=== PATIENT | female | born 1940 | race Caucasian/White ===

== ENCOUNTER → 2017-12-08 | Day surgery (SDC) | payer MEDICARE | LOC: BICULT 11:00 | PROVIDERS: ATTEND Surgery | PROC: 0HBT3ZX Excision of Right Breast, Percutaneous Approach, Diagnostic (ICD-10-PCS; principal; 2017-12-08) | DX: D05.01 Lobular carcinoma in situ of right breast (principal); Z90.12 Acquired absence of left breast and nipple | CPT/HCPCS: 19100; 76942; 88305; 88341; 88342; 88360; 88361 ==

== ENCOUNTER 2018-01-27 10:11 | Outpatient (CLI) | payer MEDICARE ==
[2018-01-27 12:18] LABS: #Lymphocytes 0.8 thou/uL (1.20-3.40); #Monocytes 0.3 thou/uL (0.11-0.59); #Neutrophils 2.5 thou/uL (1.40-6.50); %Basophils 0.4 % (0.0-1.0); %Eosinophils 0.9 % (0.0-10.0); %Lymphocytes 23.1 % (21.0-51.0); %Monocytes 8.4 % (0.0-10.0); %Neutrophils 67.2 % (42.0-75.0); Hemoglobin 12.8 g/dL (12.0-16.0); Mean Corpuscular Hemoglobin 31.5 pg (27.0-31.0); Mean Corpuscular Volume 95.6 fl (81.0-99.0); Platelet Count 150 thou/uL (130-400); RBC Distribution Width 12.5 % (11.5-14.5); Red Blood Cell (RBC) Count 4.06 mill/uL (4.20-5.40); White Blood Cell (WBC) Count 3.7 thou/uL (4.8-10.8)
[2018-01-27 12:39] LABS: Anion Gap 10 mmol/L (10-20); BUN (Urea Nitrogen) 12 mg/dL (9.8-20.1); Calc. Creatinine Clearance 0 mL/min (70-130); Calcium 9.2 mg/dL (7.8-10.44); Carbon Dioxide 26 mmol/L (23-31); Chloride 108 mmol/L (98-107); Estimated GFR-MDRD 84; Glucose 93 mg/dL (83-110); Potassium 3.8 mmol/L (3.5-5.1); Sodium 140 mmol/L (136-145)
== END 2018-01-27 10:12 | disposition home or self-care (01) ==
LOC: LABBT 10:11
PROVIDERS: ATTEND Surgery
DX: Z01.812 Encounter for preprocedural laboratory examination (principal); C50.911 Malignant neoplasm of unspecified site of right female breast
CPT/HCPCS: 80048; 85025

== ENCOUNTER 2018-01-28 07:24 | Observation (INO) | payer MEDICARE ==
[2018-01-27 10:46] VITALS: BMI 27.4
[2018-01-28] MEDS ORDERED: Succinylcholine Chloride 20 MG/ML 10 ml SYRINGE FS ONE (08:44)
[2018-01-28] MEDS ORDERED: Lidocaine 1% PF 5 ML VIAL ONE (08:44)
[2018-01-28] MEDS ORDERED: Ketorolac Tromethamine 30 MG/ML VIAL ONE (08:44)
[2018-01-28] MEDS ORDERED: PROPOFOL 200 MG/20 ML VIAL ONE (08:44)
[2018-01-28] MEDS ORDERED: Ondansetron HCl/PF 4 MG/2 ML Vial ONE (08:44)
[2018-01-28] MEDS ORDERED: Bupivacaine/Epinephrine 0.25% 30 ML VIAL ONE (11:56)
[2018-01-28] MEDS ORDERED: Lidocaine 2% 10 ML INJ ONE (11:57)
[2018-01-28] MEDS ORDERED: Fentanyl 100 MCG/2 ML VIAL ONE ×3 (11:59→15:18)
[2018-01-28] MEDS ORDERED: Midazolam HCl 2 mg/2 ml Vial ONE (11:59)
[2018-01-28] MEDS ORDERED: HYDROmorphone 0.5 MG/0.5 ML SYRINGE ONE (12:59)
[2018-01-28] MEDS ORDERED: CEFAZOLIN/Water 2 GM/20 ML SYRINGE ONE (13:08)
--- NOTE | 2018-01-28 13:53 | NM ---
NUCLEAR MEDICINE LYMPHOSCINTIGRAPHY: HISTORY: Right breast invasive cancer. COMPARISON: None. TECHNIQUE: The patient was administered 500 mCi of filtered technetium 99m sulfur colloid. The radiotracer was administered in the subcutaneous region at the 12:00, 3:00, 6:00, and 9:00 positions. FINDINGS: Static images were performed immediately, 1 hour, 2 hours, and 3 hours. There is no evidence of a se ntinel lymph node. Radiotracer is noted in the periareolar region. IMPRESSION: No sonographic evidence of a sentinel lymph node. After 3 hours, the examination was terminated and the patient was sent to the OR for surgery. POS: MESERET
[2018-01-28] MEDS ORDERED: Ondansetron HCl/PF 4 MG/2 ML Vial IVP PRN ×2 (14:56→14:58)
[2018-01-28] MEDS ORDERED: Promethazine HCl 25 MG/ML VIAL IM PRN ×2 (14:56→14:58)
[2018-01-28] MEDS ORDERED: Promethazine HCl 25 MG/ML VIAL SLOW IVP PRN (14:56)
[2018-01-28] MEDS ORDERED: Dextrose 5% in Water 1,000 ML IV PRN (14:58)
[2018-01-28] MEDS ORDERED: Sodium Chloride 0.9% 1,000 ML IV SCH (14:58)
[2018-01-28] MEDS ORDERED: hydrALAZINE 20 MG/ML VIAL SLOW IVP PRN (14:58)
[2018-01-28] MEDS ORDERED: Morphine 4 MG/ML VIAL SLOW IVP PRN ×2 (14:58)
[2018-01-28] MEDS ORDERED: HYDROcodone/Acetaminophen 7.5/325 mg Tablet PO PRN ×2 (14:58)
[2018-01-28] MEDS ORDERED: Dextrose 50% Abboject 50 ML SYRINGE SLOW IVP PRN (14:58)
[2018-01-28] MEDS ORDERED: hydrALAZINE 20 MG/ML VIAL ONE (15:44)
[2018-01-28] MEDS: Docusate 100 MG CAP PO SCH (20:46)
[2018-01-28] MEDS: Prazosin HCl 1 MG CAP PO SCH (20:54)
[2018-01-28] MEDS ORDERED: Loratadine 10 MG TAB PO SCH (21:00)
[2018-01-28] MEDS ORDERED: Oxybutynin 5 MG TAB PO SCH (21:00)
[2018-01-28] MEDS ORDERED: Atorvastatin Calcium 10 MG TAB PO SCH (21:00)
--- NOTE | 2018-01-29 01:54 | OP ---
DATE OF PROCEDURE: 01/28/2018 PREOPERATIVE DIAGNOSIS: Right breast cancer. POSTOPERATIVE DIAGNOSIS: Right breast cancer. PROCEDURE: Right modified radical mastectomy. SURGEON: Chema Archuleta M.D. ANESTHESIA: General. ESTIMATED BLOOD LOSS: Minimal. COMPLICATIONS: None. SPECIMEN: Right breast and axillary contents; breast marked with two short superior and one long lat eral. INDICATION: The patient is a 77-year-old female with a history of left mastectomy and axillary disse ction 20 years ago for hormone positive breast cancer, now presents with a second malignancy (testing was negative). She is not a candidate for radiation given her history of scleroderma. Risks, benef its, alternatives of mastectomy, sentinel node biopsy were discussed. She gave consent. Her lymphos cintigraphy failed to show uptake in the right axilla. Decision was made for axillary dissection at the time of mastectomy. TECHNIQUE: The patient was taken to the operating room and placed supine on the table. After genera l anesthetic was obtained, her arms were out on arm boards. Her bilateral chest, neck, and flanks an d proximal arms were all prepped and draped in a sterile fashion. Oblique incision is made to includ e the nipple areolar complex. Flaps are raised superior to the clavicle, medially to the sternum, in ferior to inframammary fold, laterally to latissimus dorsi muscle. The breast is taken off of the ch est wall including the pectoralis major fascia. It is peeled off of the right chest wall and breast tissue pec minor is removed as well. Clavipectoral fascia was entered. The axillary vein is f ound superiorly. The long thoracic nerve is found immediately, thoracodorsal nerve was found posteri camilo. The level 1 and 2 lymph nodes are taken. vein is taken using the LigaSure. LigaSure is used to take all lymphatics. Specimen was marked and sent to path for final diagnosis. Meticulous hemostasis is obtained in the wound. The wound is irrigated using sterile water. A 19 round drain b rought out through a stab incision, sewn in place using silk. The wound was closed in multiple layer s using 3-0 Vicryl, 4-0 Monocryl, Dermabond. Drain dressings were placed. The patient was en route to recovery in stable condition. All instrument counts, needle counts, lap counts were correct.
[2018-01-29] MEDS: Docusate 100 MG CAP PO SCH (07:53)
[2018-01-29] MEDS ORDERED: Losartan 25 MG TAB PO SCH (09:00)
[2018-01-29] MEDS: Prazosin HCl 1 MG CAP PO SCH (10:26)
[2018-01-29 12:00] VITALS: BP 107/63; TEMP 97.6
--- NOTE | 2018-01-29 17:15 | DIS ---
DATE OF ADMISSION: 01/28/2018 DATE OF DISCHARGE: 01/29/2018 ADMIT DIAGNOSIS: Invasive breast cancer, right breast. DISCHARGE DIAGNOSIS: Invasive breast cancer, right breast. PROCEDURES: Right modified radical mastectomy by Dr. Archuleta without complication. CONDITION AT DISCHARGE: Improved. STAFF: Dr. Chema Archuleta The patient was admitted to hospital for postop. Never needed any pain medicine. She did develop ur inary retention, had had a catheter placed overnight. She was able to void before discharge. She wi ll resume her anticoagulation tomorrow.
== END 2018-01-29 14:02 | disposition home or self-care (01) ==
LOC: SDC 07:24 → SURG A 16:10
PROVIDERS: ADMIT Surgery; ATTEND Surgery
PROC: 0HBT0ZZ Excision of Right Breast, Open Approach (ICD-10-PCS; principal; 2018-01-28)
DX: C50.811 Malignant neoplasm of overlapping sites of right female breast (principal); M34.9 Systemic sclerosis, unspecified; M19.90 Unspecified osteoarthritis, unspecified site; Z79.01 Long term (current) use of anticoagulants; Z79.899 Other long term (current) drug therapy; Z90.12 Acquired absence of left breast and nipple; Z88.2 Allergy status to sulfonamides; Z91.040 Latex allergy status; Z17.0 Estrogen receptor positive status [ER+]
CPT/HCPCS: 19307; 51702; 78195; 80048; 85025; 88309; 96374 ×2; A9541; G0378; J0360; J1170; J1885; J2001; J2250; J2405; J2704; J3010; Q9968

== ENCOUNTER 2018-03-30 14:20 | Outpatient (CLI) | payer MEDICARE | END 2018-03-30 14:21 | disposition home or self-care (01) | LOC: BICMAMMO 14:20 | PROVIDERS: ATTEND Internal Medicine Rheumatology | DX: Z13.820 Encounter for screening for osteoporosis (principal); Z51.81 Encounter for therapeutic drug level monitoring; M81.0 Age-related osteoporosis without current pathological fracture; M85.88 Other specified disorders of bone density and structure, other site | CPT/HCPCS: 77080 ==

== ENCOUNTER 2019-03-02 10:25 | Outpatient (CLI) | payer MEDICARE ==
--- NOTE | 2019-03-02 11:07 | RAD ---
RADIOGRAPH CHEST 2 VIEWS: 03/02/2019 HISTORY: A 78-year-old female with systemic sclerosis. COMPARISON: None available. FINDINGS: Cardiac size is at the upper limits of normal. Minimal pulmonary venous prominence. No pulmonary ed garrison or air space density. No pleural effusion or pneumothorax. Mild tortuosity of the thoracic aort a but no other mediastinal widening. No pneumothorax. Absent left breast shadow. Left axillary kalie gical clips. IMPRESSION: 1. Status post left mastectomy and left axillary lymph node dissection. 2. No convincing evidence of acute disease. JN [] POS: TPC
== END 2019-03-02 10:26 | disposition home or self-care (01) ==
LOC: BICRAD 10:25
PROVIDERS: ATTEND Internal Medicine Rheumatology
DX: M34.9 Systemic sclerosis, unspecified (principal); Z90.12 Acquired absence of left breast and nipple
CPT/HCPCS: 71046

== ENCOUNTER 2019-06-23 14:50 | Outpatient (CLI) | payer MEDICARE ==
--- NOTE | 2019-06-23 17:08 | BD ---
BONE DENSITOMETRY USING DEXA: Date: 06/23/19 HISTORY: Postmenopausal screening for osteoporosis. FINDINGS: Lumbar Spine: BMD (g/cm2) L1 1.052 T-Score: 0.6 Z-Score: 2.8 L2 1.069 T-Score: 0.4 Z-Score: 2.9 L3 1.123 T-Score: 0.4 Z-Score: 3.0 L4 1.087 T-Score: 0.2 Z-Score: 2.9 L1-L4 1.084 T-Score: 0.3 Z-Score: 2.9 Femoral Neck: 0.616 T-Score: -2.1 Z-Score: 0.1 Total Femur: 0.807 T-Score: -1.1 Z-Score: 0.8 The 10 year fracture risk for a major osteoporotic fracture is 14% and for a hip fracture is 4%. IMPRESSION: Osteopenia. POS: OFF
== END 2019-06-23 14:51 | disposition home or self-care (01) ==
LOC: BICMAMMO 14:50
PROVIDERS: ATTEND Internal Medicine Rheumatology
DX: M81.0 Age-related osteoporosis without current pathological fracture (principal); M85.859 Other specified disorders of bone density and structure, unspecified thigh
CPT/HCPCS: 77080

== ENCOUNTER 2019-11-09 12:48 | Outpatient (CLI) | payer MEDICARE ==
--- NOTE | 2019-11-09 13:32 | RAD ---
2 VIEWS CHEST: Date: 11/09/2019 COMPARISON: None. HISTORY: Dyspnea. FINDINGS: 2 views of the chest show an enlarged cardiomediastinal silhouette. There is no evidence of consolida tion, mass, or pleural effusion. Surgical clips are seen in the left axilla. IMPRESSION: No evidence of acute cardiopulmonary disease. POS: TPC
== END 2019-11-09 12:49 | disposition home or self-care (01) ==
LOC: RAD 12:48
PROVIDERS: ATTEND Internal Medicine
DX: R06.00 Dyspnea, unspecified (principal)
CPT/HCPCS: 71046

== ENCOUNTER 2020-05-15 14:51 | Inpatient (IN) | payer MEDICARE, OTHER ==
[2020-05-15 15:27] LABS: #Lymphocytes 0.6 thou/uL (1.20-3.40); #Monocytes 0.3 thou/uL (0.11-0.59); #Neutrophils 6.2 thou/uL (1.40-6.50); %Basophils 0.1 % (0.0-1.0); %Eosinophils 0.1 % (0.0-10.0); %Monocytes 4.8 % (0.0-10.0); %Neutrophils 86.9 % (42.0-75.0); Hemoglobin 11.8 g/dL (12.0-16.0); Mean Corpuscular HGB CONC 33.3 g/dL (32.0-36.0); Mean Corpuscular Hemoglobin 31.4 pg (27.0-31.0); Mean Corpuscular Volume 94.5 fL (78.0-98.0); Mean Platelet Volume 7.1 fL (7.4-10.4); Platelet Count 145 thou/uL (130-400); RBC Distribution Width 12.3 % (11.5-14.5); Red Blood Cell (RBC) Count 3.76 mill/uL (4.20-5.40); White Blood Cell (WBC) Count 7.2 thou/uL (4.8-10.8)
[2020-05-15] MEDS ORDERED: Fentanyl 100 MCG/2 ML VIAL ONE (15:46)
--- NOTE | 2020-05-15 15:46 | RAD ---
LEFT KNEE 4 VIEWS: HISTORY: Knee pain. FINDINGS: Mild loss of medial joint. Prominent spurring from the condyles. There is spurring from the tibial spines and there is chondrocalcinosis seen in both medial and lateral joint spaces. There is spurrin g from the posterior patella. There is a moderate-sized joint effusion in the suprapatellar region. No fracture or acute lesion. IMPRESSION: Moderate degenerative change and moderate-sized joint effusion. POS: AGW
[2020-05-15 15:50] LABS: ALT (SGPT) 8 U/L (8-55); AST (SGOT) 11 U/L (5-34); Alkaline Phosphatase 77 U/L (40-110); Anion Gap 14 mmol/L (10-20); BUN (Urea Nitrogen) 16 mg/dL (9.8-20.1); Bilirubin, Total 0.5 mg/dL (0.2-1.2); Calc. Creatinine Clearance 0 mL/min (70-130); Calcium 8.6 mg/dL (7.8-10.44); Carbon Dioxide 24 mmol/L (23-31); Chloride 106 mmol/L (98-107); Estimated GFR-MDRD 76; Globulin 2.7 g/dL (2.4-3.5); Glucose 121 mg/dL (83-110); Potassium 3.8 mmol/L (3.5-5.1); Protein, Total 6.7 g/dL (6.0-8.3); Sodium 140 mmol/L (136-145)
[2020-05-15] MEDS ORDERED: Dexamethasone 10 MG/ML VIAL ONE (16:17)
--- NOTE | 2020-05-15 20:00 | PDOC.HHP ---
Hospitalist HPI - History of Present Illness Left knee pain History of Present Illness: PCP: Out of town ([facility]) The patient is a 72-year-old female with a past medical history significant for osteoarthritis, raynauds/scleroderma that presents to the ER via EMS for the above complaint. The patient was in her usual health this morning when she went shopping to multiple stores. She reports after several hours of shopping that she developed left knee pain, gradually worsening throughout the morning, described as "a hard ache", constant, exacerbated with weightbearing activities , relieved by rest and elevation of the affected extremity. She reports associated swelling to the left knee, so much so that she could not bend her knee and had difficulty getting into her automobile. She denies any recent fall or blunt force trauma. She denies any fever or chills. She has no other complaints at this time. She called EMS and was taken to the ER. Upon arrival , EMS found her to be afebrile with a stable blood pressure, stable pulse, stable O2 saturation. She was given 100 mcgs of fentanyl by EMS. ED Course: VITAL SIGNS ThuMay 15, 2020 14:57 ERICA Camargo Jennifer BP: 160/62, Pulse: 63, Resp: 16, Temp: 98.2 (Oral), Pain: 8, O2 sat: 100 on ( Room Air), Time: 05/15/2020 14:57. VITAL SIGNS ThuMay 15, 2020 15:54 ERICA Camargo Jennifer BP: 162/62, Pulse: 62, Resp: 18, Pain: 3, O2 sat: 100 on (Room Air), Time: 2019 15:54. VITAL SIGNS ThuMay 15, 2020 16:19 ERICA Camargo Jennifer BP: 153/60, Pulse: 62, Resp: 20, Temp: 98.5 (Oral), Pain: 2, O2 sat: 98 on ( Room Air), Time: 05/15/2020 16:19. VITAL SIGNS ThuMay 15, 2020 17:00 Hoang RN, Daniel BP: 150/59, Pulse: 61, Resp: 21, O2 sat: 98 on (Room Air), Time: 05/15/2020 17: 00. VITAL SIGNS ThuMay 15, 2020 18:33 Hoang RN, Daniel BP: 162/69, Pulse: 65, Resp: 21, Pain: 0, O2 sat: 100 on (Room Air), Time: 2019 18:33. VITAL SIGNS ThuMay 15, 2020 19:29 Hoang RN, Daniel BP: 161/71, Pulse: 70, Resp: 22, Temp: 98.7 (Oral), Pain: 0, O2 sat: 99 on ( Room Air), Time: 05/15/2020 19:29. X-ray of the left knee showed moderate joint effusion with moderate degenerative changes. CRP less than 0.50 and ESR 17. WBC is unremarkable. Medication administration: Decadron Phosphate injection 10 mg IV Push Given 16:22 05/15/2020 fentaNYL (PF) injection 100 mcg IV Push Given 15:52 05/15/2020 Hospitalist ROS - Review of Systems Constitutional: denies: fever, chills Respiratory: denies: cough, shortness of breath, SOB with excertion Cardiovascular: denies: chest pain, palpitations, edema Gastrointestinal: denies: nausea, vomiting, abdominal pain, diarrhea Musculoskeletal: reports: leg pain (Left knee pain) Skin: denies: rash, bruising Neurological: denies: weakness, numbness All other systems reviewed; all pertinent +/- noted in HPI/Subj - Medication Medications: dilTIAZem oral CAPSULE, EXT RELEASE 24 HR : Strength - 240 mg : ORAL Patient Dose: 0.5 tab(s) Oral once a day. Allergies: Latex, Natural Rubber, Sulfa (Sulfonamide Antibiotics) (Unconfirmed) Hospitalist History - Past Medical History Source: patient, RN notes reviewed Other Medical History: MEDICAL HISTORY ThuMay 15, 2020 15:03 ERICA Camargo Jennifer Notes: HTN, AFIB (on Xarelto), BREAST CANCER, Past medical history includes history of hyperlipidemia, Raynauds/Scleroderma, FEMALE SURGICAL HISTORY ThuMay 15, 2020 15:03 ERICA Camargo Jennifer CHOLEY,, Surgical history of mastectomy. PSYCHIATRIC HISTORY: None SOCIAL HISTORY ThuMay 15, 2020 15:03 ERICA Camargo Jennifer Patient drinks every day, less than 5 drinks per day, Patient denies drug use, Patient has no smoking history. FAMILY HISTORY: Non contributory to this case - Exam General Appearance: NAD, awake alert Eye: anicteric sclera ENT: normocephalic atraumatic Neck: supple, symmetric Heart: RRR, no murmur, no gallops, no rubs, normal peripheral pulses Respiratory: CTAB, no wheezes, no rales, no ronchi, normal chest expansion Gastrointestinal: soft, non-tender, non-distended, no bruit, no guarding, no rigidity Extremities - other findings: swelling to left knee, no open lesions, no bruising,decreased ROM Neurological: normal sensation to touch, no weakness, no focal deficits Musculoskeletal: normal tone, normal strength Psychiatric: normal affect, A&O x 3 Hospitalist Results - Labs Result Diagrams: 05/15/20 15:18 05/15/20 15:18 Lab results: WBC 7.2 thou/uL (4.8-10.8) 05/15/20 15:18 Hgb 11.8 g/dL (12.0-16.0) L 05/15/20 15:18 Hct 35.5 % (36.0-47.0) L 05/15/20 15:18 MCV 94.5 fL (78.0-98.0) 05/15/20 15:18 Plt Count 145 thou/uL (130-400) 05/15/20 15:18 Neutrophils % 86.9 % (42.0-75.0) H 05/15/20 15:18 ESR Westergren 17 mm/hr (Less than 30) 05/15/20 15:18 Sodium 140 mmol/L (136-145) 05/15/20 15:18 Potassium 3.8 mmol/L (3.5-5.1) 05/15/20 15:18 Chloride 106 mmol/L (98-107) 05/15/20 15:18 Carbon Dioxide 24 mmol/L (23-31) 05/15/20 15:18 BUN 16 mg/dL (9.8-20.1) 05/15/20 15:18 Creatinine 0.74 mg/dL (0.6-1.1) 05/15/20 15:18 Glucose 121 mg/dL (83-110) H 05/15/20 15:18 Calcium 8.6 mg/dL (7.8-10.44) 05/15/20 15:18 Total Bilirubin 0.5 mg/dL (0.2-1.2) 05/15/20 15:18 AST 11 U/L (5-34) 05/15/20 15:18 ALT 8 U/L (8-55) 05/15/20 15:18 Alkaline Phosphatase 77 U/L (40-110) 05/15/20 15:18 C-Reactive Protein Less than 0.50 mg/dL (= or < 0.5) 05/15/20 15:18 Serum Total Protein 6.7 g/dL (6.0-8.3) 05/15/20 15:18 Albumin 4.0 g/dL (3.4-4.8) 05/15/20 15:18 - Radiology Interpretation Other Status: report reviewed by me Additional Comment: Left Knee Xray IMPRESSION: Moderate degenerative change and moderate-sized joint effusion. Hospitalist H&P A/P - Problem (1) Effusion, left knee Code(s): M25.462 - EFFUSION, LEFT KNEE Status: Acute Assessment and Plan: Admit to medical floor, and inpatient status. Expected length of stay greater than 2 midnights. Patient presents with stable vital signs. X-ray of left knee shows moderate joint effusion and moderate degenerative changes. ESR 17, CRP less than 0.50, WBC is unremarkable. Patient symptoms improved with opioids and steroids. We will continue as needed opioids for pain. Order ice packs and elevation of affected limb. Consult PT eval. Consult case management. [facility] saw patient in the ER and is in the process of getting approval for possible therapy. (2) Impaired mobility and ADLs Code(s): Z74.09 - OTHER REDUCED MOBILITY; Z78.9 - OTHER SPECIFIED HEALTH STATUS Status: Acute Assessment and Plan: Patient reports concern about her activities of daily living. Feels unsafe to go home. Will consult physical therapy and case management to see if patient meets rehab criteria. (3) Atrial fibrillation Code(s): I48.91 - UNSPECIFIED ATRIAL FIBRILLATION Status: Chronic Assessment and Plan: History of A. fib on Xarelto. Will restart patient Xarelto. - Plan Plan: Consult physical therapy. Lovenox for DVT prophylaxis. Full code. Contact is ARIADNA BUSTOS, Relationship to patient DAUGHTER, Phone number: [phone]. Discussed case with Dr. Sanjuana Mi.
[2020-05-15] MEDS ORDERED: Acetaminophen 325 MG TAB PO PRN (21:50)
[2020-05-15] MEDS ORDERED: Calcium Carbonate 500 MG ChewTAB PO PRN (21:50)
[2020-05-15] MEDS ORDERED: HYDROcodone/Acetaminophen 5/325 mg Tablet PO PRN (21:50)
[2020-05-15 23:23] VITALS: BMI 26.0
[2020-05-16 06:21] LABS: #Lymphocytes 0.5 thou/uL (1.20-3.40); #Monocytes 0.1 thou/uL (0.11-0.59); #Neutrophils 3.4 thou/uL (1.40-6.50); %Eosinophils 0.1 % (0.0-10.0); %Lymphocytes 11.7 % (21.0-51.0); %Monocytes 2.6 % (0.0-10.0); %Neutrophils 85.5 % (42.0-75.0); Hemoglobin 12.1 g/dL (12.0-16.0); Mean Corpuscular HGB CONC 32.4 g/dL (32.0-36.0); Mean Corpuscular Hemoglobin 30.6 pg (27.0-31.0); Mean Corpuscular Volume 94.4 fL (78.0-98.0); Mean Platelet Volume 7.8 fL (7.4-10.4); Platelet Count 163 thou/uL (130-400); RBC Distribution Width 12.4 % (11.5-14.5); Red Blood Cell (RBC) Count 3.95 mill/uL (4.20-5.40)
[2020-05-16 06:36] LABS: Anion Gap 13 mmol/L (10-20); BUN (Urea Nitrogen) 15 mg/dL (9.8-20.1); Calc. Creatinine Clearance 76 mL/min (70-130); Calcium 8.5 mg/dL (7.8-10.44); Carbon Dioxide 24 mmol/L (23-31); Chloride 106 mmol/L (98-107); Estimated GFR-MDRD 84; Glucose 130 mg/dL (83-110); Potassium 3.9 mmol/L (3.5-5.1); Sodium 139 mmol/L (136-145)
[2020-05-16] MEDS ORDERED: Vitamin E 400 UNITS CAP PO SCH (09:00)
[2020-05-16] MEDS: Lactinex Tablet PO SCH (09:39)
[2020-05-16] MEDS: Loratadine 10 MG TAB PO SCH (09:40)
[2020-05-16] MEDS: Prazosin HCl 1 MG CAP PO SCH ×2 (09:43→20:09)
[2020-05-16] MEDS: HYDROcodone/Acetaminophen 5/325 mg Tablet PO PRN (11:18)
--- NOTE | 2020-05-16 12:08 | PDOC.HOSPP ---
- Subjective Encounter Date: 05/16/20 Encounter Time: 12:05 Subjective: No overnight events. Pt reports her knee pain is the same as yesterday. Unable to bear weight on her left leg. Denies numbness, tingling. Denies back pain. denies any trauma to her knee. No history of knee problems. Pt seen and examined at bedside. Chart and medications reviewed. - Objective Vital Signs & Weight: Vital Signs (12 hours) Temp Pulse Resp BP BP Pulse Ox 05/16/20 09:39 66 160/71 H 94 L 05/16/20 07:22 97.5 F L 66 18 160/71 H 94 L 05/16/20 06:47 97.4 F L 78 18 139/52 L 92 L Weight Weight 156 lb 9.6 oz Result Diagrams: 05/17/20 05:27 05/16/20 05:40 Radiology Reviewed by me: Yes (Knee x-raysignificant joint effusion) Hospitalist ROS - Review of Systems Constitutional: denies: fever, chills, sweats, weakness, malaise, other Eyes: denies: vision change ENT: denies: ear pain, ear discharge, nose pain, nose discharge, nose congestion , mouth pain, mouth swelling, throat pain, throat swelling, other Respiratory: denies: cough, dry, shortness of breath, hemoptysis, SOB with excertion, pleuritic pain, sputum, wheezing, other Cardiovascular: denies: chest pain, palpitations, orthopnea, paroxysmal noc. dyspnea, edema, light headedness, other Gastrointestinal: denies: nausea, vomiting, abdominal pain, diarrhea, constipation, melena, hematochezia, other Genitourinary: denies: dysuria, frequency, incontinence, hematuria, retention, other Musculoskeletal: reports: leg pain Skin: denies: rash, lesions Neurological: denies: weakness, numbness, incoordination, change in speech, confusion, seizures, other - Medication Medications: Active Medications Generic Name Dose Route Start Last Admin Trade Name Freq PRN Reason Stop Dose Admin Hydrocodone Bitart/Acetaminophen 1 tab 05/15/20 21:50 05/16/20 11:18 Powers 5/325 PO 1 tab Q4H PRN Administration Moderate Pain (4-6) Acidophilus 1 tab 05/16/20 09:00 05/16/20 09:39 Floranex PO 1 tab DAILY MALGORZATA Administration Diltiazem HCl 120 mg 05/16/20 09:00 05/16/20 09:39 Cardizem Cd PO 120 mg DAILY MALGORZATA Administration Loratadine 10 mg 05/16/20 09:00 05/16/20 09:40 Claritin PO 10 mg DAILY MALGORZATA Administration Pantoprazole Sodium 40 mg 05/16/20 09:00 05/16/20 09:40 Protonix PO 40 mg DAILY MALGORZATA Administration Pentoxifylline 400 mg 05/16/20 09:00 05/16/20 09:40 Trental PO 400 mg TID MALGORZATA Administration Prazosin HCl 1 mg 05/16/20 09:00 05/16/20 09:43 Minipress PO 1 mg BID MALGORZATA Administration Sodium Chloride 10 ml 05/15/20 21:50 05/16/20 09:46 Flush - Normal Saline IVF 10 ml PRN PRN Administration Saline Flush Vitamin E 400 units 05/16/20 09:00 05/16/20 09:40 Vitamin E PO 400 units DAILY MALGORZATA Administration - Exam General Appearance: NAD, awake alert Eye: anicteric sclera ENT: normocephalic atraumatic, moist mucosa Neck: supple, symmetric, no JVD, no thyromegaly, no lymphadenopathy, no carotid bruit Heart: RRR, no murmur, no gallops, no rubs, normal peripheral pulses Respiratory: CTAB, no wheezes, no rales, no ronchi, normal chest expansion, no tachypnea, normal percussion Gastrointestinal: soft, non-tender, non-distended, normal bowel sounds, no palpable masses, no hepatomegaly, no splenomegaly, no bruit Extremities - other findings: Edema to L knee Skin: normal turgor, no lesions, no rashes Neurological: normal sensation to touch, no weakness, no focal deficits Musculoskeletal - other findings: L knee ROM limited by pain. No pain with micromotion. Ballotable effusion. Hosp A/P (1) Scleroderma Code(s): M34.9 - SYSTEMIC SCLEROSIS, UNSPECIFIED Status: Acute (2) Effusion, left knee Code(s): M25.462 - EFFUSION, LEFT KNEE Status: Acute (3) Impaired mobility and ADLs Code(s): Z74.09 - OTHER REDUCED MOBILITY; Z78.9 - OTHER SPECIFIED HEALTH STATUS Status: Acute (4) Atrial fibrillation Code(s): I48.91 - UNSPECIFIED ATRIAL FIBRILLATION Status: Chronic - Plan Left Knee Effusion: P/w pain, swelling, stiffness, and inability to bear weight to L knee that occurred while she was walking around a shopping store. Denies trauma to the area. XR showed moderate effusion, but no evidence of fx. No pain with micro- motion on exam. Low suspicion for septic arthritis. Afebrile, no leukocytosis. Pt does have hx of scleroderma and follow with rheum, however CRP and ESR not elevated. Pt is on xarelto so will consult orthopedics for ? hemarthrosis. PLAN: -orthopedics consulted, reccs appreciated -PT/OT Atrial fibrillation: Hx of a-fib on Xarelto, diltiazem. NSR. PLAN: -Hold home Xarelto dt concern for hemarthrosis -Continue home diltiazem 120 mg daily Scleroderma: Hx of scleroderma and raynauds. CRP and ESR wnl. Follows with rheumatology. On home pentoxifylline. PLAN -Continue home pentoxifylline 400 mg TID Hypertension: Continue home losartan 25 mg, diltiazem 120 mg daily DVT prophylaxis: holding home xarelto FULL CODE Case discussed with attending physician, Dr. Mccormick. Addendum - Physician - Physician Attestation Date/Time: 05/16/201913 I personally performed or re-performed the physical examination and medical decision making. I have verified all PA documentation or findings, including history, physical exam and/or medical decision making. Impression: Acute left knee pain secondary to left knee hemarthrosis - Septic arthritis less likely. Inability to ambulate due to above Paroxysmal atrial fibrillation on anticoagulation Chronic anemia suspected due to nutritional deficiency Hypertension Hyperlipidemia Scleroderma Varicose veins CKD stage II Plan: Patient had 3 attempts for arthrocentesis without successPatient probably has formed hematoma per Ortho. It is reasonable to hold anticoagulation for now due to significant joint swelling. Patient understands the risk associated with holding anticoagulation. Will continue Cardizem for rate control. Recheck labs in a.m. Hemoglobin is stable at this time. Will add IV morphine PRN due to significant pain. Continue Powers PRN. Add scheduled Tylenol/tramadol due to intractable pain. Inpatient rehab evaluation if patient not safe to be discharged home. Continue physical therapy evaluation patient not stable for discharge. Case discussed with orthopedic team.
[2020-05-16 12:56] LABS: SARS-CoV-2 MS2 Positive; SARS-CoV-2 N Gene Negative; SARS-CoV-2 S Gene Negative; SARS-CoV-2 by NAA Not Detected (NotDetected); SARS-CoV-2 orf1ab Negative
[2020-05-16] MEDS ORDERED: Morphine 2 MG/ML VIAL SLOW IVP PRN (19:12)
[2020-05-16] MEDS ORDERED: traMADol HCl 50 MG TAB PO PRN (19:17)
[2020-05-16] MEDS: Oxybutynin 5 MG TAB PO SCH (20:08)
[2020-05-16] MEDS: Losartan 25 MG TAB PO SCH (20:08)
[2020-05-16] MEDS: Acetaminophen 325 MG TAB PO SCH (20:08)
[2020-05-16] MEDS: Atorvastatin Calcium 10 MG TAB PO SCH (20:08)
[2020-05-16] MEDS: traMADol HCl 50 MG TAB PO SCH (20:09)
[2020-05-16] MEDS ORDERED: Rivaroxaban 10 MG TAB PO SCH (21:00)
[2020-05-17] MEDS: HYDROcodone/Acetaminophen 5/325 mg Tablet PO PRN ×2 (02:38→23:09)
[2020-05-17 06:06] LABS: #Lymphocytes 1.1 thou/uL (1.20-3.40); #Monocytes 0.7 thou/uL (0.11-0.59); #Neutrophils 4.7 thou/uL (1.40-6.50); %Basophils 0.2 % (0.0-1.0); %Eosinophils 0.3 % (0.0-10.0); %Lymphocytes 17.1 % (21.0-51.0); %Neutrophils 72.3 % (42.0-75.0); Hemoglobin 12.1 g/dL (12.0-16.0); Mean Corpuscular HGB CONC 31.9 g/dL (32.0-36.0); Mean Corpuscular Hemoglobin 30.8 pg (27.0-31.0); Mean Corpuscular Volume 96.3 fL (78.0-98.0); Mean Platelet Volume 7.9 fL (7.4-10.4); Platelet Count 142 thou/uL (130-400); RBC Distribution Width 12.6 % (11.5-14.5); Red Blood Cell (RBC) Count 3.92 mill/uL (4.20-5.40); White Blood Cell (WBC) Count 6.6 thou/uL (4.8-10.8)
[2020-05-17 06:28] LABS: Anion Gap 12 mmol/L (10-20); BUN (Urea Nitrogen) 16 mg/dL (9.8-20.1); Calc. Creatinine Clearance 72 mL/min (70-130); Calcium 8.3 mg/dL (7.8-10.44); Carbon Dioxide 25 mmol/L (23-31); Chloride 107 mmol/L (98-107); Estimated GFR-MDRD 78; Glucose 99 mg/dL (83-110); Magnesium 1.9 mg/dL (1.6-2.6); Potassium 4.2 mmol/L (3.5-5.1); Sodium 140 mmol/L (136-145)
[2020-05-17] MEDS ORDERED: Calcium Carbonate 500 MG ChewTAB PO PRN ×2 (08:01→15:21)
[2020-05-17] MEDS: Lactinex Tablet PO SCH (08:24)
[2020-05-17] MEDS: Acetaminophen 325 MG TAB PO SCH ×3 (08:24→20:07)
[2020-05-17] MEDS: Prazosin HCl 1 MG CAP PO SCH ×2 (08:24→20:07)
[2020-05-17] MEDS: traMADol HCl 50 MG TAB PO SCH ×3 (08:24→20:07)
[2020-05-17] MEDS: Loratadine 10 MG TAB PO SCH (08:28)
--- NOTE | 2020-05-17 14:06 | CON ---
DATE OF CONSULTATION: 05/16/2020 REQUESTING PHYSICIAN: Dr. Bin Barrientos. CONSULTING PHYSICIAN: Dr. Jose Barahona. REASON FOR CONSULTATION: Left knee hemarthrosis. BRIEF CLINICAL HISTORY: Angella is a 80-year-old female, who was admitted by the medicine team for acute onset of pain in the left knee 24 to 48 hours prior to admission. She does have a little arthritis in the knee as she notes by history, but she was doing a little extra activity, doing some walking 2 days prior to admission and she noticed she had acute swelling and discomfort in the left knee, which was similar to an onset of gout in the past. The patient does take Eliquis for atrial fibrillation. The emergency room physician saw the patient and attempted an arthrocentesis x2 both from medial and lateral suprapatellar approach. Plain radiographs were obtained, which demonstrated moderate to severe arthritis and also a large effusion in the suprapatellar pouch. There was no aspirate obtained and no specimen sent from the attempted arthrocentesis. Our service has been consulted for evaluation of the onset of pain and as to whether or not this is just simple organized hematoma from hemarthrosis versus septic arthritis. OBJECTIVE: VITAL SIGNS: Temperature 98, pulse 66, respiratory rate is 16 and nonlabored, O2 saturation 94% on room air, blood pressure is 130/66. GENERAL: She is alert and oriented to person, place, time, and situation, responsive and appropriate with examiner. She does not appear to be septic or grossly ill or toxic, and she is appropriate and polite and conversive with examiner. MUSCULOSKELETAL: Visual inspection of the left lower extremity demonstrates her to indeed have a +1 to 2 swelling, but the extracapsular tissues are soft and supple, suggesting an intracapsular process, but without significant fluctuance and ballottement is difficult to assess and ascertain due to fullness, but range of motion is difficult and stiff. The knee essentially does not look like an acute gouty or liquid effusion, but more of organized hematoma in terms of firmness and stiffness, but without subcutaneous swelling and/or thinning of the tissues, it does not chronicity to it either. She is neurovascularly intact in the left lower extremity. Range of motion is difficult to perform both active and/or passively and is uncomfortable. IMAGING STUDIES: Two-view left knee demonstrates intra-articular bony changes with suprapatellar effusion and grade 3 to 4 osteoarthritis is present. IMPRESSION: I suspect this is an organized hematoma, intracapsular in nature secondary to spontaneous hemarthrosis. This is also suggested by the overall appearance clinically radiographs and inability to obtain an aspirate with arthrocentesis. PLAN: 1. We will consult Physical therapy for mobilization, modalities as needed. 2. No surgical intervention is warranted at this point and would prefer not to repeat a failed arthrocentesis. No imaging is recommended at this point since we have a good firm clinical diagnosis. 3. For this particular patient, we will sign off for now. Re-consult as needed. Job ID: [id number]
[2020-05-17] MEDS ORDERED: Acetaminophen/Codeine 30-300mg Tablet PO PRN (15:13)
--- NOTE | 2020-05-17 15:15 | PDOC.HOSPP ---
- Subjective Encounter Date: 05/17/20 Encounter Time: 08:15 Subjective: Patient seen and examined for left knee hemarthrosis. No significant pain at rest. Pain gets worse with activity. - Objective Vital Signs & Weight: Vital Signs (12 hours) Temp Pulse Resp BP Pulse Ox 05/17/20 11:19 98 F 69 17 111/57 L 100 05/17/20 08:25 55 L 05/17/20 07:12 97.5 F L 55 L 16 126/67 98 05/17/20 05:00 97.6 F 67 16 129/71 94 L Weight Weight 156 lb 9.6 oz I&O: 05/16/20 05/17/20 05/18/20 06:59 06:59 06:59 Intake Total 1160 Output Total 1150 Balance 10 Result Diagrams: 05/17/20 05:27 05/17/20 05:27 Radiology Reviewed by me: Yes (Left knee x-rayeffusion) Hospitalist ROS - Review of Systems Respiratory: denies: cough, dry, shortness of breath, hemoptysis, SOB with excertion, pleuritic pain, sputum, wheezing, other Cardiovascular: denies: chest pain, palpitations, orthopnea, paroxysmal noc. dyspnea, edema, light headedness, other - Medication Medications: Active Medications Generic Name Dose Route Start Last Admin Trade Name Freq PRN Reason Stop Dose Admin Acetaminophen 650 mg 05/15/20 21:50 05/16/20 12:48 Tylenol PO 650 mg Q4H PRN Administration Headache/Fever/Mild Pain (1-3) Acetaminophen 650 mg 05/16/20 21:00 05/17/20 14:33 Tylenol PO 650 mg TID MALGORZATA Administration Hydrocodone Bitart/Acetaminophen 1 tab 05/15/20 21:50 05/17/20 02:38 [place] 5/325 PO 1 tab Q4H PRN Administration Moderate Pain (4-6) Acidophilus 1 tab 05/16/20 09:00 05/17/20 08:24 Floranex PO 1 tab DAILY MALGORZATA Administration Atorvastatin Calcium 10 mg 05/16/20 21:00 05/16/20 20:08 Lipitor PO 10 mg HS MALGORZATA Administration Calcium Carbonate 1,000 mg 05/17/20 08:01 05/17/20 14:32 Tums PO 1,000 mg Q4H PRN Administration Heartburn or Indigestion Diltiazem HCl 120 mg 05/16/20 09:00 05/17/20 08:25 Cardizem Cd PO Not Given DAILY MALGORZATA Loratadine 10 mg 05/16/20 09:00 05/17/20 08:28 Claritin PO 10 mg DAILY MALGORZATA Administration Losartan Potassium 25 mg 05/16/20 21:00 05/16/20 20:08 Cozaar PO 25 mg HS MALGORZATA Administration Oxybutynin Chloride 5 mg 05/16/20 21:00 05/16/20 20:08 Ditropan PO 5 mg HS MALGORZATA Administration Pentoxifylline 400 mg 05/16/20 09:00 05/17/20 08:24 Trental PO 400 mg TID MALGORZATA Administration Prazosin HCl 1 mg 05/16/20 09:00 05/17/20 08:24 Minipress PO 1 mg BID MALGORZATA Administration Sodium Chloride 10 ml 05/15/20 21:50 05/16/20 09:46 Flush - Normal Saline IVF 10 ml PRN PRN Administration Saline Flush Tramadol HCl 50 mg 05/16/20 21:00 05/17/20 14:33 Ultram PO 50 mg TID MALGORZATA Administration - Exam General Appearance: NAD Neck: supple, no JVD Heart: RRR, no gallops Respiratory: no wheezes, no ronchi Gastrointestinal: soft, non-tender, normal bowel sounds Extremities: no cyanosis Neurological: no new deficit Hosp A/P - Plan Acute left knee pain secondary to left knee hemarthrosis - Septic arthritis less likely. Inability to ambulate due to above Paroxysmal atrial fibrillation on anticoagulation Chronic anemia suspected due to nutritional deficiency Hypertension Hyperlipidemia Scleroderma Varicose veins CKD stage II GERD Plan: Continue Tylenol with tramadol scheduled for pain control. Continue [place] and morphine for acute pain. Await physical therapy evaluation today. I discussed with orthopedic who recommended conservative management. Will also add Teodoro wrap 's for left knee. Will arrange for home health care for long term and physical therapy. Restart Xarelto today. Discharge home when able to ambulate. Continue Cardizem and other medications as above.
[2020-05-17] MEDS ORDERED: Mag-Al 1200 mg/1200 mg/30 ML UDCUP PO PRN (15:21)
[2020-05-17] MEDS: Rivaroxaban 10 MG TAB PO SCH (17:21)
[2020-05-17] MEDS: Atorvastatin Calcium 10 MG TAB PO SCH (20:07)
[2020-05-17] MEDS: Oxybutynin 5 MG TAB PO SCH (20:07)
[2020-05-17] MEDS: Losartan 25 MG TAB PO SCH (20:07)
[2020-05-17] MEDS ORDERED: diphenhydrAMINE 50 MG/ML VIAL IVP SCH (20:45)
[2020-05-18] MEDS: Prazosin HCl 1 MG CAP PO SCH ×2 (08:56→21:06)
[2020-05-18] MEDS: Lactinex Tablet PO SCH (08:57)
[2020-05-18] MEDS: Acetaminophen 325 MG TAB PO SCH ×3 (08:57→21:06)
[2020-05-18] MEDS: Loratadine 10 MG TAB PO SCH (08:59)
[2020-05-18] MEDS: traMADol HCl 50 MG TAB PO SCH ×3 (08:59→21:06)
[2020-05-18] MEDS: Senokot S 8.6-50 MG TAB PO PRN (14:43)
[2020-05-18] MEDS: Rivaroxaban 10 MG TAB PO SCH (17:50)
--- NOTE | 2020-05-18 21:02 | PDOC.EVN ---
Event Note - Event Note Event Note: Received call from nursing that patient's heart rate was elevated. Stat EKG ordered showed A. fib with RVR. Patient asymptomatic other than can feel the palpitations. Patient to be transferred to telemetry to be monitored. Stat labs ordered. Cardizem bolus ordered once to the floor. Cardiology consult in a.m.
[2020-05-18] MEDS: Oxybutynin 5 MG TAB PO SCH (21:06)
[2020-05-18] MEDS: Atorvastatin Calcium 10 MG TAB PO SCH (21:06)
[2020-05-18] MEDS: Losartan 25 MG TAB PO SCH (21:06)
[2020-05-18] MEDS ORDERED: Magnesium 2 GM/50 ML 2 GM in Premix Bag 1 BAG IVPB SCH (22:00)
[2020-05-18] MEDS ORDERED: Electrolyte Replacement Protoc 1 EACH EACH FS SCH (22:00)
--- NOTE | 2020-05-18 23:23 | PDOC.HOSPP ---
- Subjective Encounter Date: 05/18/20 Encounter Time: 11:00 Subjective: Patient seen and examined for left knee hemarthrosis. Continues to have significant pain on ambulation. No fever or chills reported. - Objective Vital Signs & Weight: Vital Signs (12 hours) Temp Pulse Resp BP Pulse Ox 05/18/20 20:00 98.9 F 154 H 20 124/63 97 Weight Weight 156 lb 9.6 oz I&O: 05/17/20 05/18/20 05/19/20 06:59 06:59 06:59 Intake Total 1524 891 0782 Output Total 1150 825 Balance 10 -528 1200 Result Diagrams: 05/17/20 05:27 05/17/20 05:27 Hospitalist ROS - Review of Systems Respiratory: denies: cough, dry, shortness of breath, hemoptysis, SOB with excertion, pleuritic pain, sputum, wheezing, other Cardiovascular: denies: chest pain, palpitations, orthopnea, paroxysmal noc. dyspnea, edema, light headedness, other - Medication Medications: Active Medications Generic Name Dose Route Start Last Admin Trade Name Freq PRN Reason Stop Dose Admin Acetaminophen 650 mg 05/15/20 21:50 05/16/20 12:48 Tylenol PO 650 mg Q4H PRN Administration Headache/Fever/Mild Pain (1-3) Acetaminophen 650 mg 05/16/20 21:00 05/18/20 21:06 Tylenol PO 650 mg TID MALGORZATA Administration Hydrocodone Bitart/Acetaminophen 1 tab 05/15/20 21:50 05/17/20 23:09 [place] 5/325 PO 1 tab Q4H PRN Administration Moderate Pain (4-6) Acidophilus 1 tab 05/16/20 09:00 05/18/20 08:57 Floranex PO 1 tab DAILY MALGORZATA Administration Atorvastatin Calcium 10 mg 05/16/20 21:00 05/18/20 21:06 Lipitor PO 10 mg HS MALGORZATA Administration Calcium Carbonate 1,000 mg 05/17/20 15:21 05/17/20 20:08 Tums PO 1,000 mg Q4H PRN Administration Heartburn or Indigestion Diltiazem HCl 120 mg 05/16/20 09:00 05/18/20 08:57 Cardizem Cd PO 120 mg DAILY MALGORZATA Administration Diltiazem HCl 15 mg 05/18/20 21:45 05/18/20 21:52 Cardizem SLOW IVP 05/18/20 23:45 15 mg NOW MALGORZATA Administration Magnesium Sulfate 2 gm/ Device 50 mls @ 50 mls/hr 05/18/20 22:00 05/18/20 23: 14 IVPB 05/18/20 23:59 50 mls NOW MALGORZATA Administration Loratadine 10 mg 05/16/20 09:00 05/18/20 08:59 Claritin PO 10 mg DAILY MALGORZATA Administration Losartan Potassium 25 mg 05/16/20 21:00 05/18/20 21:06 Cozaar PO 25 mg HS MALGORZATA Administration Oxybutynin Chloride 5 mg 05/16/20 21:00 05/18/20 21:06 Ditropan PO 5 mg HS MALGORZATA Administration Pantoprazole Sodium 40 mg 05/18/20 07:30 05/18/20 08:59 Protonix PO 40 mg DAILY-AC MALGORZATA Administration Pentoxifylline 400 mg 05/16/20 09:00 05/18/20 21:05 Trental PO 400 mg TID MALGORZATA Administration Prazosin HCl 1 mg 05/16/20 09:00 05/18/20 21:06 Minipress PO 1 mg BID MALGORZATA Administration Rivaroxaban 20 mg 05/17/20 18:00 05/18/20 17:50 Xarelto PO 20 mg 1800 MALGORZATA Administration Senna/Docusate Sodium 2 tab 05/15/20 21:50 05/18/20 14:43 Senokot S PO 2 tab BID PRN Administration Constipation Sodium Chloride 10 ml 05/15/20 21:50 05/18/20 21:52 Flush - Normal Saline IVF 10 ml PRN PRN Administration Saline Flush Tramadol HCl 50 mg 05/16/20 21:00 05/18/20 21:06 Ultram PO 50 mg TID MALGORZATA Administration - Exam General Appearance: NAD Neck: supple, no JVD Heart: RRR, no gallops Respiratory: no wheezes, no ronchi Gastrointestinal: soft, non-distended Extremities: no cyanosis Hosp A/P - Plan Acute left knee pain secondary to left knee hemarthrosis - Septic arthritis less likely. Inability to ambulate due to above Paroxysmal atrial fibrillation on anticoagulation Chronic anemia suspected due to nutritional deficiency Hypertension Hyperlipidemia Scleroderma Varicose veins CKD stage II GERD Plan: 05/18 Continue current pain medication. Continue physical therapy. Patient still unsteady and has significant pain on ambulation. Will arrange for rolling walker. In comparison home health care has been arranged. Continue Xarelto with Cardizem and other home medications as above. DC home in a.m. if stable. Orthopedic input appreciated. Continue physical therapy. 05/17 Continue Tylenol with tramadol scheduled for pain control. Continue [place] and morphine for acute pain. Await physical therapy evaluation today. I discussed with orthopedic who recommended conservative management. Will also add Teodoro wrap 's for left knee. Will arrange for home health care for [facility] and physical therapy. Restart Xarelto today. Discharge home when able to ambulate. Continue Cardizem and other medications as above.
[2020-05-19] MEDS: diphenhydrAMINE 30 GM TUBE TOP PRN ×4 (00:26→20:51)
[2020-05-19] MEDS: HYDROcodone/Acetaminophen 5/325 mg Tablet PO PRN (04:39)
[2020-05-19 04:42] LABS: #Eosinphils 0.1 thou/uL (0.0-0.7); #Lymphocytes 0.8 thou/uL (1.20-3.40); #Monocytes 0.5 thou/uL (0.11-0.59); #Neutrophils 3.1 thou/uL (1.40-6.50); %Basophils 0.1 % (0.0-1.0); %Lymphocytes 17.2 % (21.0-51.0); %Monocytes 10.7 % (0.0-10.0); Hemoglobin 11.7 g/dL (12.0-16.0); Mean Corpuscular HGB CONC 31.7 g/dL (32.0-36.0); Mean Corpuscular Hemoglobin 30.3 pg (27.0-31.0); Mean Corpuscular Volume 95.5 fL (78.0-98.0); Mean Platelet Volume 7.6 fL (7.4-10.4); Platelet Count 157 thou/uL (130-400); RBC Distribution Width 12.6 % (11.5-14.5); Red Blood Cell (RBC) Count 3.85 mill/uL (4.20-5.40); White Blood Cell (WBC) Count 4.5 thou/uL (4.8-10.8)
[2020-05-19 05:29] LABS: Albumin 3.1 g/dL (3.4-4.8); Anion Gap 11 mmol/L (10-20); BUN (Urea Nitrogen) 15 mg/dL (9.8-20.1); BUN/Creatinine Ratio 23.81; Calc. Creatinine Clearance 83 mL/min (70-130); Calcium 8.4 mg/dL (7.8-10.44); Carbon Dioxide 28 mmol/L (23-31); Chloride 105 mmol/L (98-107); Estimated GFR-MDRD Greater than 90; Glucose 117 mg/dL (83-110); Magnesium 2.4 mg/dL (1.6-2.6); Phosphorus 3.9 mg/dL (2.3-4.7); Potassium 3.9 mmol/L (3.5-5.1); Sodium 140 mmol/L (136-145)
[2020-05-19] MEDS: Prazosin HCl 1 MG CAP PO SCH ×2 (08:02→20:47)
[2020-05-19] MEDS: Acetaminophen 325 MG TAB PO SCH ×3 (08:02→20:46)
[2020-05-19] MEDS: Loratadine 10 MG TAB PO SCH (08:03)
[2020-05-19] MEDS: Lactinex Tablet PO SCH (08:03)
[2020-05-19] MEDS: traMADol HCl 50 MG TAB PO SCH ×3 (08:07→21:00)
[2020-05-19] MEDS: Senokot S 8.6-50 MG TAB PO PRN (15:50)
[2020-05-19] MEDS: Rivaroxaban 10 MG TAB PO SCH (17:55)
--- NOTE | 2020-05-19 19:01 | PDOC.HOSPP ---
- Subjective Encounter Date: 05/19/20 Encounter Time: 11:00 Subjective: Patient seen and examined for left knee hemarthrosis. Developed atrial fibrillation with rapid ventricular response last night. Was transferred to telemetry. She received 1 dose of 15 mg IV Cardizem after which her rate improved. Denies any chest discomfort at this time. Still has significant left knee pain which gets worse with ambulation. - Objective Vital Signs & Weight: Vital Signs (12 hours) Temp Pulse Pulse Pulse Resp BP BP 05/19/20 15:43 97.8 F 71 15 05/19/20 11:26 98.2 F 65 14 05/19/20 10:29 62 60 120/56 L 131/61 05/19/20 08:05 05/19/20 07:14 98.2 F 62 14 BP Pulse Ox 05/19/20 15:43 120/55 L 96 05/19/20 11:26 114/54 L 96 05/19/20 10:29 05/19/20 08:05 98 05/19/20 07:14 132/62 98 Weight Weight 156 lb 9.6 oz I&O: 05/18/20 05/19/20 05/20/20 06:59 06:59 06:59 Intake Total 560 1200 Output Total 825 Balance -265 1200 Result Diagrams: 05/19/20 04:19 05/19/20 04:19 EKG Reviewed by me: Yes (Sinus rhythm on telemetry) Hospitalist ROS - Review of Systems ENT: denies: ear pain, ear discharge, nose pain, nose discharge, nose congestion , mouth pain, mouth swelling, throat pain, throat swelling, other Respiratory: denies: cough, dry, shortness of breath, hemoptysis, SOB with excertion, pleuritic pain, sputum, wheezing, other Cardiovascular: denies: chest pain, palpitations, orthopnea, paroxysmal noc. dyspnea, edema, light headedness, other - Medication Medications: Active Medications Generic Name Dose Route Start Last Admin Trade Name Freq PRN Reason Stop Dose Admin Acetaminophen 650 mg 05/15/20 21:50 05/16/20 12:48 Tylenol PO 650 mg Q4H PRN Administration Headache/Fever/Mild Pain (1-3) Acetaminophen 650 mg 05/16/20 21:00 05/19/20 15:50 Tylenol PO 650 mg TID MALGORZATA Administration Hydrocodone Bitart/Acetaminophen 1 tab 05/15/20 21:50 05/19/20 04:39 [place] 5/325 PO 1 tab Q4H PRN Administration Moderate Pain (4-6) Acidophilus 1 tab 05/16/20 09:00 05/19/20 08:03 Floranex PO 1 tab DAILY MALGORZATA Administration Atorvastatin Calcium 10 mg 05/16/20 21:00 05/18/20 21:06 Lipitor PO 10 mg HS MALGORZATA Administration Calcium Carbonate 1,000 mg 05/17/20 15:21 05/17/20 20:08 Tums PO 1,000 mg Q4H PRN Administration Heartburn or Indigestion Diltiazem HCl 120 mg 05/16/20 09:00 05/19/20 08:03 Cardizem Cd PO 120 mg DAILY MALGORZATA Administration Loratadine 10 mg 05/16/20 09:00 05/19/20 08:03 Claritin PO 10 mg DAILY MALGORZATA Administration Losartan Potassium 25 mg 05/16/20 21:00 05/18/20 21:06 Cozaar PO 25 mg HS MALGORZATA Administration Oxybutynin Chloride 5 mg 05/16/20 21:00 05/18/20 21:06 Ditropan PO 5 mg HS MALGORZATA Administration Pantoprazole Sodium 40 mg 05/18/20 07:30 05/19/20 08:03 Protonix PO 40 mg DAILY-AC MALGORZATA Administration Pentoxifylline 400 mg 05/16/20 09:00 05/19/20 15:50 Trental PO 400 mg TID MALGORZATA Administration Prazosin HCl 1 mg 05/16/20 09:00 05/19/20 08:02 Minipress PO 1 mg BID MALGORZATA Administration Rivaroxaban 20 mg 05/17/20 18:00 05/19/20 17:55 Xarelto PO 20 mg 1800 MALGORZATA Administration Sodium Chloride 10 ml 05/15/20 21:50 05/18/20 21:52 Flush - Normal Saline IVF 10 ml PRN PRN Administration Saline Flush Tramadol HCl 50 mg 05/16/20 21:00 05/19/20 15:50 Ultram PO Not Given TID MALGORZATA Zinc Acetate/Diphenhydramine 0 gm 05/18/20 23:58 05/19/20 15:51 Benadryl 2% Cream TOP 1 applic QID PRN Administration Itching - Exam General Appearance: NAD Neck: supple, no JVD Heart: RRR, no gallops Respiratory: no wheezes, no rales Gastrointestinal: soft, non-tender, normal bowel sounds Extremities: no cyanosis, no clubbing Extremities - other findings: Left knee swelling without significant warmth or erythema Hosp A/P - Plan Acute left knee pain secondary to left knee hemarthrosis Inability to ambulate due to above Paroxysmal atrial fibrillation with rapid ventricular response Chronic anticoagulation Chronic anemia suspected due to nutritional deficiency Hypertension Hyperlipidemia Scleroderma Varicose veins CKD stage II GERD Plan: 05/19 Patient developed atrial fibrillation with rapid ventricular response last night. In sinus rhythm at this time. Will continue physical therapy. Home health care and walker has been arranged. Continue Cardizem with Xarelto. Continue pain medications for left knee pain. If no significant overnight events patient can probably be discharged home in a.m. 05/18 Continue current pain medication. Continue physical therapy. Patient still unsteady and has significant pain on ambulation. Will arrange for rolling walker. In comparison home health care has been arranged. Continue Xarelto with Cardizem and other home medications as above. DC home in a.m. if stable. Orthopedic input appreciated. Continue physical therapy. 05/17 Continue Tylenol with tramadol scheduled for pain control. Continue [place] and morphine for acute pain. Await physical therapy evaluation today. I discussed with orthopedic who recommended conservative management. Will also add Teodoro wrap 's for left knee. Will arrange for home health care for [facility] and physical therapy. Restart Xarelto today. Discharge home when able to ambulate. Continue Cardizem and other medications as above.
[2020-05-19] MEDS: Oxybutynin 5 MG TAB PO SCH (20:47)
[2020-05-19] MEDS: Losartan 25 MG TAB PO SCH (20:47)
[2020-05-19] MEDS: Atorvastatin Calcium 10 MG TAB PO SCH (20:47)
[2020-05-19] MEDS: Senokot S 8.6-50 MG TAB PO SCH (20:49)
[2020-05-19] MEDS ORDERED: Polyethylene Glycol 3350 17 GM Packet PO SCH (21:00)
[2020-05-20 04:20] LABS: #Eosinphils 0.2 thou/uL (0.0-0.7); #Lymphocytes 0.9 thou/uL (1.20-3.40); #Monocytes 0.5 thou/uL (0.11-0.59); #Neutrophils 2.6 thou/uL (1.40-6.50); %Basophils 0.5 % (0.0-1.0); %Lymphocytes 21.5 % (21.0-51.0); %Monocytes 12.4 % (0.0-10.0); %Neutrophils 61.6 % (42.0-75.0); Hemoglobin 10.7 g/dL (12.0-16.0); Mean Corpuscular HGB CONC 32.4 g/dL (32.0-36.0); Mean Corpuscular Volume 95.8 fL (78.0-98.0); Mean Platelet Volume 7.7 fL (7.4-10.4); Platelet Count 173 thou/uL (130-400); RBC Distribution Width 12.5 % (11.5-14.5); Red Blood Cell (RBC) Count 3.47 mill/uL (4.20-5.40); White Blood Cell (WBC) Count 4.3 thou/uL (4.8-10.8)
[2020-05-20 04:40] LABS: Anion Gap 10 mmol/L (10-20); BUN (Urea Nitrogen) 16 mg/dL (9.8-20.1); Calc. Creatinine Clearance 83 mL/min (70-130); Calcium 8.4 mg/dL (7.8-10.44); Carbon Dioxide 28 mmol/L (23-31); Chloride 106 mmol/L (98-107); Estimated GFR-MDRD Greater than 90; Glucose 104 mg/dL (83-110); Magnesium 2.2 mg/dL (1.6-2.6); Phosphorus 3.4 mg/dL (2.3-4.7); Potassium 4.1 mmol/L (3.5-5.1); Sodium 140 mmol/L (136-145)
[2020-05-20] MEDS: Acetaminophen 325 MG TAB PO SCH (10:06)
[2020-05-20] MEDS: Loratadine 10 MG TAB PO SCH (10:06)
[2020-05-20] MEDS: Prazosin HCl 1 MG CAP PO SCH (10:07)
[2020-05-20] MEDS: Senokot S 8.6-50 MG TAB PO SCH (10:09)
[2020-05-20] MEDS: Lactinex Tablet PO SCH (10:09)
[2020-05-20] MEDS: traMADol HCl 50 MG TAB PO SCH (10:09)
--- NOTE | 2020-05-20 11:20 | DIS ---
DATE OF ADMISSION: 05/15/2020 DATE OF DISCHARGE: 05/20/2020 DISCHARGE DISPOSITION: Home. FOLLOWUP: 1. Follow up with primary care physician, Dr. Christie Elizabeth in 1 week. 2. Follow up with Orthopedic, Dr. Oj Johnson and Cardiology as scheduled. ALLERGIES: NO KNOWN DRUG ALLERGIES. THE PATIENT WAS SEEN AND EXAMINED ON THE DAY OF DISCHARGE. DENIES ANY NEW COMPLAINTS. NO CHEST PAIN, SHORTNESS OF BREATH, OR PALPITATIONS REPORTED. DISCHARGE MEDICATIONS: Tramadol as needed for pain. All other home medications were left unchanged. HOSPITAL COURSE: The patient is a 80-year-old female with paroxysmal atrial fibrillation, on anticoagulation, presented to the hospital with left knee pain. The knee pain started after several hours of shopping. It gradually got worse and unbearable for which she presented to the emergency room. In the emergency room, arthrocentesis was attempted without success. The patient was evaluated by Orthopedic Service. Per Orthopedic, the patient probably has hemarthrosis with organized hematoma. Conservative management was recommended. She was evaluated by Physical Therapy. LIDIA wraps were also recommended. Pain got significantly improved with pain medications. The patient has a history of paroxysmal atrial fibrillation. On May evening, the patient developed atrial fibrillation with rapid ventricular response on the medical floor. She was transferred to the telemetry unit. She received 15 mg of IV Cardizem; after which she converted back to sinus rhythm. She was monitored overnight for significant arrhythmias. She was advised to follow up with Cardiology for possible event monitor. Anticoagulation was held only for one dose due to hemarthrosis. She appears stable for discharge. FINAL DIAGNOSES: 1. Acute left knee pain due to spontaneous left knee hemarthrosis. 2. Inability to ambulate due to above. 3. Paroxysmal atrial fibrillation with rapid ventricular response. 4. Chronic anticoagulation. 5. Chronic anemia due to nutritional deficiency. 6. Hypertension. 7. Hyperlipidemia. 8. Scleroderma. 9. History of varicose veins. 10. Chronic kidney disease, stage 2. 11. Gastroesophageal reflux disease. The patient understands the above plan of care. Home health care through [facility] has been arranged. Rolling walker was also arranged. Job ID: [id number]
[2020-05-20 11:59] VITALS: BP 136/60; TEMP 97.6
== END 2020-05-20 14:30 | disposition home health service (06) | DRG 554 ==
LOC: ERS 14:51 → T4-A 20:22 → 2NO 05-18 22:27
PROVIDERS: ADMIT Internal Medicine; ATTEND Internal Medicine
PROC: 0SJD3ZZ Inspection of Left Knee Joint, Percutaneous Approach (ICD-10-PCS; principal; 2020-05-15)
DX: M25.062 Hemarthrosis, left knee (principal); I48.0 Paroxysmal atrial fibrillation; D53.9 Nutritional anemia, unspecified; E78.5 Hyperlipidemia, unspecified; M34.9 Systemic sclerosis, unspecified; N18.2 Chronic kidney disease, stage 2 (mild); I12.9 Hypertensive chronic kidney disease with stage 1 through stage 4 chronic kidney disease, or unspecified chronic kidney disease; K21.9 Gastro-esophageal reflux disease without esophagitis; Z20.828 Contact with and (suspected) exposure to other viral communicable diseases; E78.00 Pure hypercholesterolemia, unspecified; Z90.10 Acquired absence of unspecified breast and nipple; Z91.040 Latex allergy status; Z79.01 Long term (current) use of anticoagulants; Z88.2 Allergy status to sulfonamides; Z91.048 Other nonmedicinal substance allergy status; Z79.899 Other long term (current) drug therapy; Z85.3 Personal history of malignant neoplasm of breast
CPT/HCPCS: 20611; 36415; 80048; 80053; 80069; 83735; 85025; 85652; 86140; 87635; 93005; 93010; 96374; 96375; 99406; J1100; J1200; J3010; J3475; U0003

== ENCOUNTER 2020-10-02 10:09 | Observation (INO) | payer MEDICARE ==
--- NOTE | 2020-10-02 10:39 | RAD ---
Chest AP view INDICATION: Palpitations and shortness of breath COMPARISON: Prior chest 2 views dated November 09, 2019 FINDINGS: Lungs: The lungs are clear Cardiac silhouette: There is stable mild cardiomegaly Pulmonary vasculature: Normal Pleural spaces: No pleural effusion or pneumothorax is demonstrated. Upper abdomen: No abnormality seen. Osseous structures: No acute osseous abnormality. Additional findings: Surgical clips within the left axillary region are stable. IMPRESSION: Stable cardiomegaly without evidence for cardiac decompensation
[2020-10-02 10:49] LABS: #Eosinphils 0.1 thou/uL (0.0-0.7); #Lymphocytes 0.9 thou/uL (1.20-3.40); #Monocytes 0.3 thou/uL (0.11-0.59); #Neutrophils 1.9 thou/uL (1.40-6.50); %Basophils 0.8 % (0.0-1.0); %Eosinophils 2.7 % (0.0-10.0); %Lymphocytes 28.2 % (21.0-51.0); %Monocytes 9.7 % (0.0-10.0); %Neutrophils 58.5 % (42.0-75.0); Hemoglobin 14.2 g/dL (12.0-16.0); Mean Corpuscular HGB CONC 33.3 g/dL (32.0-36.0); Mean Corpuscular Volume 93.1 fL (78.0-98.0); Mean Platelet Volume 7.8 fL (7.4-10.4); Platelet Count 144 thou/uL (130-400); RBC Distribution Width 12.4 % (11.5-14.5); White Blood Cell (WBC) Count 3.3 thou/uL (4.8-10.8)
[2020-10-02 11:07] LABS: ALT (SGPT) 9 U/L (8-55); AST (SGOT) 14 U/L (5-34); Albumin 4.1 g/dL (3.4-4.8); Alkaline Phosphatase 73 U/L (40-110); Anion Gap 15 mmol/L (10-20); BUN (Urea Nitrogen) 14 mg/dL (9.8-20.1); Bilirubin, Total 0.6 mg/dL (0.2-1.2); Calc. Creatinine Clearance 0 mL/min (70-130); Calcium 9.1 mg/dL (7.8-10.44); Carbon Dioxide 22 mmol/L (23-31); Chloride 109 mmol/L (98-107); Globulin 3.5 g/dL (2.4-3.5); Glucose 101 mg/dL (83-110); Potassium 4.3 mmol/L (3.5-5.1); Protein, Total 7.6 g/dL (6.0-8.3); Sodium 142 mmol/L (136-145)
[2020-10-02] MEDS ORDERED: Diltiazem 125 MG/25 ML ONE (11:15)
[2020-10-02 11:29] LABS: INR-International Normal Ratio 1.1; Prothrombin Time 14.3 sec (12.0-14.7)
[2020-10-02] MEDS ORDERED: Calcium Carbonate 500 MG ChewTAB PO PRN (14:18)
[2020-10-02] MEDS ORDERED: Acetaminophen 325 MG TAB PO PRN (14:18)
[2020-10-02] MEDS ORDERED: Bisacodyl 10 MG SUPP PR PRN (14:18)
[2020-10-02] MEDS ORDERED: Guaifenesin DM 100-10/5 ML UDCUP PO PRN (14:18)
[2020-10-02] MEDS ORDERED: Diltiazem 125 MG in Sodium Chloride 0.9% 100 ML IVPB SCH (14:30)
[2020-10-02 15:27] LABS: Troponin I Less than 0.010 ng/mL (< 0.028)
--- NOTE | 2020-10-02 16:17 | HP ---
REASON FOR ADMISSION: Atrial fibrillation with RVR. HISTORY OF PRESENTING ILLNESS: The patient gives history of waking up around 3 in the morning with palpitation. This has been going off and on from then. The patient finally woke up to check her blood pressure. Her pulse was 164 on the monitor. As this continued, the patient called EMS and was brought to the emergency room here. Has no complaints of chest pain. The patient has known history of atrial fibrillation in the past. She sees Dr. Mcintyre for the same. She is on Eliquis and Cardizem CD. No complaints of cough or expectoration. No complaints of fever. PAST MEDICAL AND SURGICAL HISTORY: History of atrial fibrillation, history of scleroderma, osteoarthritis, hypertension, history of breast cancer with right modified radical mastectomy done in January of 2018, dyslipidemia. CURRENT MEDICATIONS: The patient is on, 1. Eliquis 5 mg twice daily. 2. Prazosin 1 mg twice daily. 3. Pentoxifylline 400 mg daily protocol. 4. Protonix 40 mg daily. 5. Atorvastatin 10 mg p.o. q.a.m. 6. Cardizem CD 120 mg p.o. daily. 7. Boniva 150 mg p.o. daily. 8. Vitamin D one tablet daily. 9. Loratadine 10 mg daily. 10. Oxybutynin 5 mg daily. 11. Losartan 25 mg daily. ALLERGIES: SULFA AND LATEX. PERSONAL HISTORY: Does not abuse alcohol or drugs. No history of smoking. She ambulates by herself and lives with her . FAMILY HISTORY: Both parents of natural causes. Mother was 82, father was 90. REVIEW OF SYSTEMS: CONSTITUTIONAL: Negative for weight loss or gain, ability to conduct usual activities. SKIN: Negative for rash, itching. EYES: Negative for double vision, pain. ENT/MOUTH: Negative for nose bleeding, neck stiffness, pain, tenderness. CARDIOVASCULAR: Negative for palpitations, dyspnea on exertion, orthopnea. RESPIRATORY: Negative for shortness of breath, wheezing, cough, hemoptysis, fever or night sweats. GASTROINTESTINAL: Negative for poor appetite, abdominal pain, heartburn, nausea, vomiting, constipation, or diarrhea. GENITOURINARY: Negative for urgency, frequency, dysuria, nocturia. MUSCULOSKELETAL: Negative for pain, swelling. NEUROLOGIC/PSYCHIATRIC: Negative for anxiety, depression. ALLERGY/IMMUNOLOGIC: Negative for skin rash, bleeding tendency. PHYSICAL EXAMINATION: GENERAL: Patient is a 80-year-old female, who is currently not in any acute distress. VITAL SIGNS: Blood pressure 138/66, pulse 90 per minute, respiratory rate 18 per minute, temperature 98.5 degrees Fahrenheit, saturating 99% on room air. NECK: Supple. No elevated JVD. HEENT: Eyes; extraocular muscles intact. Pupils reacting to light. Oral cavity, mucous membranes are moist. No exudates or congestion. CARDIOVASCULAR SYSTEM: S1, S2 heard. Irregular rhythm. RESPIRATORY SYSTEM: Air entry 1+ bilateral. No rales or rhonchi. ABDOMEN: Soft. Bowel sounds heard. No tenderness, rigidity, or guarding. EXTREMITIES: No peripheral edema or calf tenderness. VASCULAR SYSTEM: Peripheral pulses 1+ bilateral. No ischemic ulcers or gangrene. CENTRAL SYSTEM: No gross focal motor deficits noted. The patient is alert, awake, and oriented well. PSYCHIATRIC SYSTEM: The patient's mood is euthymic. No hallucinations or delusions. LABRATORY DATA: Troponin x2 negative. Chest x-ray done shows mild cardiomegaly, otherwise no acute infiltrate. BNP 173, BUN 14, creatinine 0.76, serum glucose 101. Electrolytes, stable. LFTs are within normal limits. Albumin is 4.1. White count of 3.3, H and H 14 and 42, platelet count 144 with 58% neutrophils, MCV is 93. EKG done shows atrial fibrillation with RVR. CLINICAL IMPRESSION AND PLAN: Patient will be admitted to telemetry for atrial fibrillation with RVR with known history of chronic atrial fibrillation. She sees Dr. Mcintyre. We will consult him. She is currently on 5 mg an hour Cardizem drip. EMS initially put her on Cardizem drip. This was titrated down and discontinued in the ER, but the patient went back into RVR, hence was placed back on the drip. We will continue her oral Cardizem CD at 120 mg daily. We will try to add low-dose Lopressor 12.5 mg twice daily. We will continue her Eliquis Lipitor, Cozaar, oxybutynin, Protonix, pentoxifylline, prazosin as before. CODE STATUS: Full. Power of real estate associate attorney is her . Job ID: [id number] [facility]
[2020-10-02 17:14] LABS: Troponin I 0.016 ng/mL (< 0.028)
[2020-10-02] MEDS ORDERED: Atorvastatin Calcium 10 MG TAB PO SCH (21:00)
[2020-10-02] MEDS: Senokot S 8.6-50 MG TAB PO SCH (22:30)
[2020-10-02] MEDS: Apixaban 5 MG TAB PO SCH (22:30)
[2020-10-02] MEDS: Metoprolol Tartrate 25 MG TAB PO SCH (22:30)
[2020-10-02] MEDS: Prazosin HCl 1 MG CAP PO SCH (22:31)
[2020-10-03 03:15] VITALS: BMI 25.1
[2020-10-03 04:52] LABS: #Eosinphils 0.1 thou/uL (0.0-0.7); #Lymphocytes 1.1 thou/uL (1.20-3.40); #Monocytes 0.4 thou/uL (0.11-0.59); #Neutrophils 2.6 thou/uL (1.40-6.50); %Basophils 0.4 % (0.0-1.0); %Eosinophils 2.4 % (0.0-10.0); %Lymphocytes 26.2 % (21.0-51.0); %Monocytes 8.9 % (0.0-10.0); Hemoglobin 11.5 g/dL (12.0-16.0); Mean Corpuscular HGB CONC 33.1 g/dL (32.0-36.0); Mean Corpuscular Hemoglobin 31.3 pg (27.0-31.0); Mean Corpuscular Volume 94.6 fL (78.0-98.0); Mean Platelet Volume 7.9 fL (7.4-10.4); Platelet Count 145 thou/uL (130-400); RBC Distribution Width 12.4 % (11.5-14.5); Red Blood Cell (RBC) Count 3.66 mill/uL (4.20-5.40); White Blood Cell (WBC) Count 4.2 thou/uL (4.8-10.8)
[2020-10-03 05:34] LABS: Anion Gap 12 mmol/L (10-20); BUN (Urea Nitrogen) 23 mg/dL (9.8-20.1); Calc. Creatinine Clearance 72 mL/min (70-130); Calcium 8.5 mg/dL (7.8-10.44); Carbon Dioxide 25 mmol/L (23-31); Chloride 108 mmol/L (98-107); Glucose 101 mg/dL (83-110); Potassium 3.9 mmol/L (3.5-5.1); Sodium 141 mmol/L (136-145)
[2020-10-03] MEDS: Apixaban 5 MG TAB PO SCH (08:21)
[2020-10-03] MEDS: Senokot S 8.6-50 MG TAB PO SCH (08:22)
[2020-10-03] MEDS: Metoprolol Tartrate 25 MG TAB PO SCH (08:22)
--- NOTE | 2020-10-03 08:49 | PDOC.DS.DS ---
Provider - Provider Date of Admission: 10/02/20 11:44 Date of Discharge: 10/03/20 Admitting Provider: Marli Shaver MD Primary Care Physician: ELIZABETH HUYNH MD Course - Hospital Course Hospital Course: The patient is a 80-year-old female with past medical history of atrial fibrillation, scleroderma, osteoarthritis, hypertension, and breast cancer status post mastectomy who presented to the hospital with palpitations. She was found to be in atrial fibrillation with rapid ventricular response requiring diltiazem drip. The patient is also on Eliquis at home. She was seen by her acoustic warfare analyst Dr. Mcintyre and her oral Cardizem was increased to 180 mg. Her rate was controlled prior to discharge. Resuscitation Status: 10/02/20 14:15 Resuscitation Status Routine Resuscitation Status: FULL: Full Resuscitation Discussed with: POA: - Labs Lab Results: 10/03/20 03:56 10/03/20 03:56 Abnormal Lab Results - Last 48 hrs 10/02/20 10:33: Chloride 109 H, Carbon Dioxide 22 L 10/02/20 10:33: B-Natriuretic Peptide 173.0 H 10/02/20 10:33: WBC 3.3 L, Lymphocytes # 0.9 L 10/03/20 03:56: Chloride 108 H, BUN 23 H 10/03/20 03:56: WBC 4.2 L, RBC 3.66 L, Hgb 11.5 L, Hct 34.6 L, MCH 31.3 H, Lymphocytes # 1.1 L - Physical Exam Vitals: Vital Signs (12 hours) Temp Pulse Resp BP Pulse Ox 10/03/20 08:23 51 L 10/03/20 04:44 98 F 51 L 16 113/51 L 99 10/03/20 00:25 54 L 132/61 Weight Weight 151 lb 3.2 oz Physical Exam: The patient was seen and examined on the day of discharge. Plan - Discharge Medications Prescriptions: Diltiazem HCl [Diltiazem ER 24 Hr] 180 mg PO DAILY #30 tablet Home Medications: Medication Instructions Recorded Confirmed Type Atorvastatin Calcium 1 tab PO DAILY 01/27/18 10/03/20 History Loratadine 1 cap PO DAILY 01/27/18 10/03/20 History Losartan Potassium [Cozaar] 0.5 tab PO DAILY 01/27/18 10/03/20 History Oxybutynin [Ditropan] 1 tab PO DAILY 01/27/18 10/03/20 History Pantoprazole [Protonix] 1 tab PO DAILY 01/27/18 10/03/20 History Pentoxifylline [Trental] 1 tab PO TID 01/27/18 10/03/20 History Prazosin HCl [Minipress] 1 mg PO BID 01/27/18 10/03/20 History Triamcinolone Acetonide 1 drop TOP ASDIR PRN 01/27/18 10/03/20 History Acetaminophen [Tylenol Regular 650 mg PO Q4H PRN tab 05/20/20 10/03/20 Rx Strength] Anastrozole 1 mg PO DAILY 10/03/20 10/03/20 History Cholecalciferol (Vitamin D3) 5,000 unit PO DAILY 10/03/20 10/03/20 History [Vitamin D] Diltiazem HCl [Diltiazem ER 24 Hr] 180 mg PO DAILY #30 tablet 10/03/20 Rx Ibandronate Sodium [Boniva] 150 mg PO [id number] 10/03/20 10/03/20 History Allergies: Latex, Natural Rubber Allergy (Verified 10/03/20 03:59) Sulfa (Sulfonamide Antibiotics) Allergy (Verified 10/03/20 03:59) - Follow up Plan Referrals: ELIZABETH HUYNH [Primary Care Provider] - Disposition: HOME Quality - Care Measures CORE MEASURES:: N/A
[2020-10-03] MEDS ORDERED: Losartan 25 MG TAB PO SCH (09:00)
[2020-10-03] MEDS ORDERED: Oxybutynin 5 MG TAB PO SCH (09:00)
[2020-10-03] MEDS: Prazosin HCl 1 MG CAP PO SCH (09:33)
--- NOTE | 2020-10-03 10:28 | CON ---
DATE OF CONSULTATION: REASON FOR CONSULTATION: Atrial fibrillation. HISTORY OF PRESENT ILLNESS: Ms. Carmona is a 80-year-old woman whom I have seen and evaluated in the past. She recently presented with tachycardia. She has been fairly well controlled. She has underlying chronic atrial fibrillation. She has been on Cardizem 120 mg one p.o. q.a.m. During my visit, her heart rate appears controlled and she is stable. PAST MEDICAL HISTORY: Chronic atrial fibrillation, mitral regurgitation, hypertension, varicose veins status post ablation, breast cancer, spontaneous left knee hemarthrosis in 2019 from anticoagulation therapy, and scleroderma. HOME MEDICATIONS: Include: 1. Probiotic. 2. . 3. Pantoprazole. 4. Oxybutynin. 5. Loratadine. 6. Boniva. 7. Pentoxifylline. 8. Diltiazem 120 q.a.m. 9. Vitamin D. 10. Eliquis. 11. Losartan. 12. Atorvastatin. PAST SURGICAL HISTORY: Bunionectomy, BTL, cholecystectomy. REVIEW OF SYSTEMS: A 10-point review of systems is reviewed and is as above, negative. PHYSICAL EXAMINATION: GENERAL: Patient is a pleasant female who is in no acute distress. The patient appears their stated age. VITAL SIGNS: Blood pressure 113/51, pulse 81, temperature 98. NEUROLOGIC: The patient is alert and oriented x3 with no focal neurologic deficits. HEENT: Sclerae without icterus. Mouth has moist mucous membranes with normal pallor. NECK: No JVD. Carotid upstroke brisk. No bruits bilaterally. LUNGS: Clear to auscultation with unlabored respirations. BACK: No scoliosis or kyphosis. CARDIAC: Irregularly irregular. ABDOMEN: Soft, nontender, nondistended. No peritoneal signs present. No hepatosplenomegaly. No abnormal striae. EXTREMITIES: 2+ femoral and 2+ dorsalis pedis pulses. No cyanosis, clubbing, or edema. SKIN: No gross abnormalities. PERTINENT LABORATORY DATA: Hemoglobin 11.5. Creatinine was 0.7. BNP 173. IMPRESSION: Chronic atrial fibrillation. RECOMMENDATIONS: Ms. Carmona's heart rate appears stable. We will recommend increasing her Cardizem from 120 to 180 q.a.m. Consider adding digoxin as an outpatient. Otherwise, the patient appears stable for discharge. Job ID: [id number]
[2020-10-03 12:50] LABS: SARS-CoV-2 PCR by NAA Not Detected (NotDetected)
[2020-10-03 13:21] VITALS: BP 115/54; TEMP 98.3
--- NOTE | 2020-10-20 16:41 | EKG ---
Test Reason : PALPATIONS Blood Pressure : / mmHG Vent. Rate : 090 BPM Atrial Rate : 150 BPM P-R Int : 000 ms QRS Dur : 094 ms QT Int : 360 ms P-R-T Axes : 000 023 030 degrees QTc Int : 440 ms Atrial fibrillation Minimal voltage criteria for LVH, may be normal variant Nonspecific ST abnormality Abnormal ECG Confirmed by TIN MANCUSO, RAHAT Collier ([id number]), film editor supervisor MANISH JULIO ([id number]) on 10/20/2020 4:40:37 PM Referred By: Confirmed By:RAHAT CASTLE MD
== END 2020-10-03 14:10 | disposition home or self-care (01) ==
LOC: ERS 10:09 → ERHOLD 11:44 → 2NO 20:49
PROVIDERS: ADMIT Internal Medicine; ATTEND Internal Medicine
DX: I48.20 Chronic atrial fibrillation, unspecified (principal); M34.9 Systemic sclerosis, unspecified; M19.90 Unspecified osteoarthritis, unspecified site; I10 Essential (primary) hypertension; E78.5 Hyperlipidemia, unspecified; I34.0 Nonrheumatic mitral (valve) insufficiency; Z85.3 Personal history of malignant neoplasm of breast; Z79.01 Long term (current) use of anticoagulants; Z79.811 Long term (current) use of aromatase inhibitors; Z79.83 Long term (current) use of bisphosphonates; Z79.84 Long term (current) use of oral hypoglycemic drugs; Z79.899 Other long term (current) drug therapy; Z88.2 Allergy status to sulfonamides; Z91.040 Latex allergy status; Z20.822 Contact with and (suspected) exposure to COVID-19
CPT/HCPCS: 71045; 80048; 80053; 83880; 84484 ×2; 85025 ×2; 85610; 93005; 94760; 96365; 96366; 99285; U0003; U0005; 36415; 87635; G0378

== ENCOUNTER 2021-04-04 09:24 | Outpatient (CLI) | payer MEDICARE | END 2021-04-04 09:25 | disposition home or self-care (01) | LOC: BICMAMMO 09:24 | PROVIDERS: ATTEND Internal Medicine Rheumatology | DX: M81.0 Age-related osteoporosis without current pathological fracture (principal); M85.852 Other specified disorders of bone density and structure, left thigh | CPT/HCPCS: 77080 ==

== ENCOUNTER 2021-09-19 08:31 | Outpatient (CLI) | payer MEDICARE | END 2021-09-19 08:32 | disposition home or self-care (01) | LOC: RAD 08:31 | PROVIDERS: ATTEND Internal Medicine Critical Care Medicine | DX: R06.00 Dyspnea, unspecified (principal); J98.11 Atelectasis; J90 Pleural effusion, not elsewhere classified; I51.7 Cardiomegaly | CPT/HCPCS: 71046 ==

== ENCOUNTER 2021-11-05 01:01 | Emergency (ER) | payer MEDICARE | END 2021-11-05 05:11 | disposition home or self-care (01) | LOC: ERS 01:01 | DX: L03.115 Cellulitis of right lower limb (principal); I48.91 Unspecified atrial fibrillation; E78.5 Hyperlipidemia, unspecified; I10 Essential (primary) hypertension; Z79.899 Other long term (current) drug therapy ==

== ENCOUNTER 2021-11-25 11:21 | Inpatient (IN) | payer MEDICARE ==
[2021-11-25] MEDS ORDERED: Diltiazem 125 MG/25 ML ONE (11:32)
[2021-11-25 12:07] LABS: #Eosinphils 0.1 thou/uL (0.0-0.7); #Lymphocytes 1.1 thou/uL (1.20-3.40); #Monocytes 0.4 thou/uL (0.11-0.59); #Neutrophils 2.4 thou/uL (1.40-6.50); %Basophils 0.8 % (0.0-1.0); %Eosinophils 2.4 % (0.0-10.0); %Lymphocytes 27.6 % (21.0-51.0); %Monocytes 9.4 % (0.0-10.0); %Neutrophils 59.8 % (42.0-75.0); Hemoglobin 12.5 g/dL (12.0-16.0); Mean Corpuscular HGB CONC 30.2 g/dL (32.0-36.0); Mean Corpuscular Hemoglobin 28.1 pg (27.0-31.0); Mean Corpuscular Volume 92.9 fL (78.0-98.0); Mean Platelet Volume 6.9 fL (7.4-10.4); Platelet Count 178 thou/uL (130-400); RBC Distribution Width 13.8 % (11.5-14.5); Red Blood Cell (RBC) Count 4.45 mill/uL (4.20-5.40); White Blood Cell (WBC) Count 4.1 thou/uL (4.8-10.8)
[2021-11-25 12:31] LABS: Digoxin 0.48 ng/mL (0.8-2.0)
[2021-11-25 12:33] LABS: ALT (SGPT) 12 U/L (8-55); AST (SGOT) 13 U/L (5-34); Albumin 4.1 g/dL (3.4-4.8); Alkaline Phosphatase 123 U/L (40-110); Anion Gap 15 mmol/L (10-20); BUN (Urea Nitrogen) 14 mg/dL (9.8-20.1); Bilirubin, Total 0.9 mg/dL (0.2-1.2); Calc. Creatinine Clearance 0 mL/min (70-130); Calcium 9.7 mg/dL (7.8-10.44); Carbon Dioxide 25 mmol/L (23-31); Chloride 105 mmol/L (98-107); Globulin 4.3 g/dL (2.4-3.5); Glucose 100 mg/dL (83-110); Magnesium 2.3 mg/dL (1.6-2.6); Potassium 3.8 mmol/L (3.5-5.1); Protein, Total 8.4 g/dL (5.8-8.1); Sodium 141 mmol/L (136-145)
[2021-11-25] MEDS ORDERED: Furosemide 20 MG/2 ML VIAL ONE (14:24)
[2021-11-25] MEDS ORDERED: Potassium Chloride 20 MEQ TAB ONE (14:24)
[2021-11-25 15:23] LABS: Magnesium 2.8 mg/dL (1.6-2.6)
[2021-11-25 16:22] LABS: SARS-CoV-2 NAA Rapid Test Not Detected (NotDetected)
[2021-11-25] MEDS ORDERED: Calcium Carbonate 500 MG ChewTAB PO PRN (17:23)
[2021-11-25] MEDS ORDERED: Senokot S 8.6-50 MG TAB PO PRN (17:23)
[2021-11-25] MEDS ORDERED: Communication Order-Pharmacy FS SCH (17:25)
[2021-11-25] MEDS: Acetaminophen 325 MG TAB PO PRN (19:27)
[2021-11-25 21:10] VITALS: BMI 26.9
[2021-11-25] MEDS: Enoxaparin Sodium 80 MG/0.8 ML SYRINGE SC SCH (21:42)
[2021-11-25] MEDS: Prazosin HCl 1 MG CAP PO SCH (21:42)
[2021-11-26 04:44] LABS: #Eosinphils 0.2 thou/uL (0.0-0.7); #Lymphocytes 1.4 thou/uL (1.20-3.40); #Monocytes 0.5 thou/uL (0.11-0.59); #Neutrophils 1.9 thou/uL (1.40-6.50); %Eosinophils 4.5 % (0.0-10.0); %Lymphocytes 34.5 % (21.0-51.0); %Monocytes 13.3 % (0.0-10.0); %Neutrophils 46.7 % (42.0-75.0); Mean Corpuscular HGB CONC 31.5 g/dL (32.0-36.0); Mean Corpuscular Volume 92.3 fL (78.0-98.0); Mean Platelet Volume 7.2 fL (7.4-10.4); Platelet Count 153 thou/uL (130-400); RBC Distribution Width 13.7 % (11.5-14.5); Red Blood Cell (RBC) Count 4.14 mill/uL (4.20-5.40)
[2021-11-26 05:11] LABS: ALT (SGPT) 10 U/L (8-55); AST (SGOT) 10 U/L (5-34); Albumin 3.4 g/dL (3.4-4.8); Alkaline Phosphatase 103 U/L (40-110); Anion Gap 13 mmol/L (10-20); BUN (Urea Nitrogen) 15 mg/dL (9.8-20.1); Bilirubin, Total 0.6 mg/dL (0.2-1.2); Calc. Creatinine Clearance 68 mL/min (70-130); Calcium 8.7 mg/dL (7.8-10.44); Carbon Dioxide 26 mmol/L (23-31); Chloride 108 mmol/L (98-107); Globulin 3.4 g/dL (2.4-3.5); Glucose 97 mg/dL (83-110); Magnesium 2.1 mg/dL (1.6-2.6); Potassium 3.6 mmol/L (3.5-5.1); Protein, Total 6.8 g/dL (5.8-8.1); Sodium 143 mmol/L (136-145)
[2021-11-26] MEDS: Diltiazem HCl SR 60 mg Capsule PO SCH ×4 (05:24→17:20)
[2021-11-26] MEDS: Diltiazem 125 MG in Sodium Chloride 0.9% 100 ML IVPB SCH ×2 (05:24→17:20)
[2021-11-26] MEDS ORDERED: Furosemide 20 MG/2 ML VIAL SLOW IVP SCH ×2 (07:23→09:00)
[2021-11-26] MEDS ORDERED: Non-Formulary Item 1 EACH (Ibandronate Sodium [Boniva] 150 MG Tablet) PO SCH (07:30)
[2021-11-26] MEDS ORDERED: Potassium Chloride 10 MEQ TAB PO SCH (08:00)
[2021-11-26] MEDS ORDERED: LORATADINE 10 MG PO SCH (09:00)
[2021-11-26] MEDS: Enoxaparin Sodium 80 MG/0.8 ML SYRINGE SC SCH ×2 (09:29→20:42)
[2021-11-26] MEDS: Furosemide 40 MG/4 ML VIAL SLOW IVP SCH (09:29)
[2021-11-26] MEDS: Potassium Bicarbonate/Cit Ac 20 MEQ TAB PO SCH ×2 (09:29→17:20)
[2021-11-26] MEDS: Oxybutynin 5 MG TAB PO SCH (09:29)
[2021-11-26] MEDS: Cholecalciferol 1,000 UNITS (25 MCG) TAB PO SCH (09:30)
[2021-11-26] MEDS: Atorvastatin Calcium 10 MG TAB PO SCH (09:30)
[2021-11-26] MEDS: Loratadine 10 MG TAB PO SCH (09:30)
[2021-11-26] MEDS: Anastrozole 1 MG TAB PO SCH (09:30)
[2021-11-26] MEDS: Digoxin 0.125 MG TAB PO SCH (09:31)
[2021-11-26] MEDS: Prazosin HCl 1 MG CAP PO SCH ×2 (09:31→20:42)
[2021-11-26] MEDS ORDERED: Digoxin 0.5 MG/2 ML AMP SLOW IVP SCH (19:30)
[2021-11-26] MEDS ORDERED: Ondansetron PF 4 MG/2 ML Vial IVP PRN (22:20)
[2021-11-27] MEDS: Diltiazem HCl SR 60 mg Capsule PO SCH ×4 (00:04→18:01)
[2021-11-27 05:05] LABS: Anion Gap 13 mmol/L (10-20); BUN (Urea Nitrogen) 18 mg/dL (9.8-20.1); Calc. Creatinine Clearance 66 mL/min (70-130); Calcium 8.5 mg/dL (7.8-10.44); Carbon Dioxide 25 mmol/L (23-31); Chloride 105 mmol/L (98-107); Glucose 113 mg/dL (83-110); Potassium 4.1 mmol/L (3.5-5.1); Sodium 139 mmol/L (136-145)
[2021-11-27 05:06] LABS: Digoxin 0.98 ng/mL (0.8-2.0)
[2021-11-27] MEDS: Diltiazem 125 MG in Sodium Chloride 0.9% 100 ML IVPB SCH (06:26)
[2021-11-27] MEDS: Enoxaparin Sodium 80 MG/0.8 ML SYRINGE SC SCH ×2 (09:26→20:44)
[2021-11-27] MEDS: Digoxin 0.125 MG TAB PO SCH (09:27)
[2021-11-27] MEDS: Cholecalciferol 1,000 UNITS (25 MCG) TAB PO SCH (09:27)
[2021-11-27] MEDS: Furosemide 40 MG/4 ML VIAL SLOW IVP SCH (09:27)
[2021-11-27] MEDS: Prazosin HCl 1 MG CAP PO SCH ×2 (09:27→20:44)
[2021-11-27] MEDS: Potassium Bicarbonate/Cit Ac 20 MEQ TAB PO SCH ×2 (09:28→18:01)
[2021-11-27] MEDS: Oxybutynin 5 MG TAB PO SCH (09:28)
[2021-11-27] MEDS: Loratadine 10 MG TAB PO SCH (09:28)
[2021-11-27] MEDS: Anastrozole 1 MG TAB PO SCH (09:28)
[2021-11-27] MEDS: Atorvastatin Calcium 10 MG TAB PO SCH (09:28)
[2021-11-27] MEDS ORDERED: Sodium Bicarbonate 2.5 MEQ/5 ML VIAL ONE (12:25)
[2021-11-27] MEDS ORDERED: Lidocaine 1% PF 5 ML VIAL ONE (12:25)
[2021-11-27 14:26] LABS: INR-International Normal Ratio 1.1; Prothrombin Time 14.7 sec (12.0-14.7)
[2021-11-27] MEDS ORDERED: Diltiazem 125 MG in Sodium Chloride 0.9% 100 ML IVPB SCH ×4 (15:39→18:30)
[2021-11-28] MEDS: Acetaminophen 325 MG TAB PO PRN ×2 (02:14→21:58)
[2021-11-28 04:11] LABS: Hemoglobin 10.7 g/dL (12.0-16.0); Platelet Count 150 thou/uL (130-400)
[2021-11-28] MEDS: Prazosin HCl 1 MG CAP PO SCH ×2 (08:53→21:58)
[2021-11-28] MEDS: Cholecalciferol 1,000 UNITS (25 MCG) TAB PO SCH (08:53)
[2021-11-28] MEDS: Digoxin 0.125 MG TAB PO SCH (08:53)
[2021-11-28] MEDS: Atorvastatin Calcium 10 MG TAB PO SCH (08:53)
[2021-11-28] MEDS: Furosemide 40 MG/4 ML VIAL SLOW IVP SCH (08:54)
[2021-11-28] MEDS: Enoxaparin Sodium 80 MG/0.8 ML SYRINGE SC SCH ×2 (08:54→21:57)
[2021-11-28] MEDS: Loratadine 10 MG TAB PO SCH (08:54)
[2021-11-28] MEDS: Oxybutynin 5 MG TAB PO SCH (08:54)
[2021-11-28] MEDS: Anastrozole 1 MG TAB PO SCH (08:54)
[2021-11-28] MEDS: Potassium Bicarbonate/Cit Ac 20 MEQ TAB PO SCH ×2 (08:54→16:43)
[2021-11-28] MEDS ORDERED: Simethicone Chewable 80 MG TAB PO PRN (12:50)
[2021-11-28] MEDS ORDERED: Diltiazem HCl SR 60 mg Capsule PO SCH (15:45)
[2021-11-28] MEDS ORDERED: Digoxin 0.125 MG TAB PO SCH (15:45)
[2021-11-29] MEDS: Prazosin HCl 1 MG CAP PO SCH ×2 (08:28→19:49)
[2021-11-29] MEDS: Digoxin 0.25 MG TAB PO SCH (08:28)
[2021-11-29] MEDS: Anastrozole 1 MG TAB PO SCH (08:29)
[2021-11-29] MEDS: Acetaminophen 325 MG TAB PO PRN ×2 (08:29→19:49)
[2021-11-29] MEDS: Cholecalciferol 1,000 UNITS (25 MCG) TAB PO SCH (08:29)
[2021-11-29] MEDS: Loratadine 10 MG TAB PO SCH (08:29)
[2021-11-29] MEDS: Atorvastatin Calcium 10 MG TAB PO SCH (08:30)
[2021-11-29] MEDS: Enoxaparin Sodium 80 MG/0.8 ML SYRINGE SC SCH ×2 (08:30→19:49)
[2021-11-29] MEDS: Oxybutynin 5 MG TAB PO SCH (08:30)
[2021-11-29] MEDS: Potassium Bicarbonate/Cit Ac 20 MEQ TAB PO SCH ×2 (08:30→17:45)
[2021-11-29] MEDS: Furosemide 40 MG/4 ML VIAL SLOW IVP SCH (08:30)
[2021-11-29] MEDS ORDERED: Diltiazem HCl CD 300 mg Capsule PO SCH (09:00)
[2021-11-29] MEDS ORDERED: Metoprolol Tartrate 25 MG TAB PO SCH ×2 (11:30→21:00)
[2021-11-30] MEDS: Potassium Bicarbonate/Cit Ac 20 MEQ TAB PO SCH (08:51)
[2021-11-30] MEDS: Furosemide 40 MG/4 ML VIAL SLOW IVP SCH (08:52)
[2021-11-30] MEDS: Cholecalciferol 1,000 UNITS (25 MCG) TAB PO SCH (08:52)
[2021-11-30] MEDS: Loratadine 10 MG TAB PO SCH (08:53)
[2021-11-30] MEDS: Oxybutynin 5 MG TAB PO SCH (08:53)
[2021-11-30] MEDS: Anastrozole 1 MG TAB PO SCH (08:53)
[2021-11-30] MEDS: Digoxin 0.25 MG TAB PO SCH (08:53)
[2021-11-30] MEDS: Atorvastatin Calcium 10 MG TAB PO SCH (08:53)
[2021-11-30] MEDS: Prazosin HCl 1 MG CAP PO SCH (08:55)
[2021-11-30] MEDS ORDERED: Apixaban 5 MG TAB PO SCH (09:00)
[2021-11-30 12:08] VITALS: TEMP 98.7
[2021-11-30] MEDS ORDERED: BUPIVACAINE 0.5% FS SCH (14:30)
[2021-11-30] MEDS ORDERED: ADMIXTURE FEE FS SCH (14:30)
[2021-11-30] MEDS ORDERED: DEXAMETHASONE FS SCH (14:30)
[2021-11-30 16:20] VITALS: BP 118/54
== END 2021-11-30 17:32 | disposition home health service (06) | DRG 309 ==
LOC: ERS 11:21 → ERHOLD 14:22 → 2NO 17:30
PROVIDERS: ADMIT Internal Medicine; ATTEND Emergency Medicine
DX: I48.19 Other persistent atrial fibrillation (principal); J90 Pleural effusion, not elsewhere classified; I87.1 Compression of vein; L97.319 Non-pressure chronic ulcer of right ankle with unspecified severity; J98.11 Atelectasis; E87.70 Fluid overload, unspecified; Z20.822 Contact with and (suspected) exposure to COVID-19; M17.11 Unilateral primary osteoarthritis, right knee; I12.9 Hypertensive chronic kidney disease with stage 1 through stage 4 chronic kidney disease, or unspecified chronic kidney disease; E78.5 Hyperlipidemia, unspecified; I87.8 Other specified disorders of veins; N18.2 Chronic kidney disease, stage 2 (mild); M34.9 Systemic sclerosis, unspecified; E87.6 Hypokalemia; E78.00 Pure hypercholesterolemia, unspecified; E78.1 Pure hyperglyceridemia; D72.819 Decreased white blood cell count, unspecified; Z79.899 Other long term (current) drug therapy; Z91.040 Latex allergy status; Z85.3 Personal history of malignant neoplasm of breast; Z88.2 Allergy status to sulfonamides; Z90.49 Acquired absence of other specified parts of digestive tract; Z90.13 Acquired absence of bilateral breasts and nipples
CPT/HCPCS: 36415; 71045; 71046; 76999; 80048; 80053; 80162; 83735; 83880; 84443; 84484; 85014; 85018; 85025; 85049; 85610; 85730; 93005; 93798; 96374; 96375; J1100; J1160; J1650; J1940; J2405; J3490; U0002

== ENCOUNTER 2023-03-24 09:03 | Outpatient (CLI) | payer MEDICARE | END 2023-03-24 09:04 | disposition home or self-care (01) | LOC: BICMAMMO 09:03 | PROVIDERS: ATTEND Internal Medicine Rheumatology | DX: M81.0 Age-related osteoporosis without current pathological fracture (principal); M85.852 Other specified disorders of bone density and structure, left thigh | CPT/HCPCS: 77080 ==

== ENCOUNTER 2024-03-03 09:17 | Inpatient (IN) | payer MEDICARE ==
[2024-03-02 11:00] VITALS: BMI 24.1
[2024-03-03] MEDS ORDERED: CEFAZOLIN 2 GM VIAL ONE (10:01)
[2024-03-03] MEDS ORDERED: Heparin 10,000 UNITS/ 10 ML VIAL ONE (10:01)
[2024-03-03] MEDS ORDERED: Protamine Sulfate 50 MG/5 ML VIAL ONE (10:01)
[2024-03-03] MEDS ORDERED: SUGAMMADEX SODIUM 200 MG/2 ML VIAL ONE (11:53)
[2024-03-03] MEDS ORDERED: fentaNYL 50 mcg/mL 1 mL Vial ONE (11:53)
[2024-03-03] MEDS ORDERED: Rocuronium Bromide 10 MG/ML (10ML VIAL) ONE (12:01)
[2024-03-03] MEDS ORDERED: Ondansetron PF 4 MG/2 ML Vial ONE (12:01)
[2024-03-03] MEDS ORDERED: Lidocaine 1% PF 5 ML VIAL ONE (12:01)
[2024-03-03] MEDS ORDERED: PROPOFOL 200 MG/20 ML VIAL ONE (12:01)
[2024-03-03] MEDS ORDERED: Dexamethasone 20 MG/5 ML VIAL ONE (12:01)
[2024-03-03] MEDS ORDERED: Iopamidol 370 76% 100 ML VIAL ONE (12:04)
[2024-03-03] MEDS ORDERED: Acetaminophen 325 MG TAB PO PRN (14:29)
[2024-03-03] MEDS ORDERED: HYDROcodone/Acetaminophen 5/325 mg Tablet PO PRN ×2 (14:30)
[2024-03-03] MEDS ORDERED: HYDROcodone/Acetaminophen 5/325 mg Tablet ONE (15:50)
[2024-03-03] MEDS ORDERED: Rivaroxaban 10 MG TAB PO SCH (17:00)
[2024-03-03] MEDS: Potassium Chloride 20 MEQ TAB PO SCH (18:41)
[2024-03-03] MEDS: Pentoxifylline 400 MG ER.TAB PO SCH (18:42)
[2024-03-03] MEDS: Rivaroxaban 10 MG TAB PO SCH (18:44)
[2024-03-03] MEDS: Atorvastatin Calcium 10 MG TAB PO SCH (20:23)
[2024-03-04] MEDS: Digoxin 0.25 MG TAB PO SCH (08:11)
[2024-03-04] MEDS: Ferrous Sulfate 325 MG TAB PO SCH (08:11)
[2024-03-04] MEDS: Polyethylene Glycol 3350 17 GM Packet PO SCH (08:11)
[2024-03-04] MEDS: Pantoprazole DR 40 MG TAB PO SCH (08:12)
[2024-03-04] MEDS: Cholecalciferol 1,000 UNITS (25 MCG) TAB PO SCH (08:12)
[2024-03-04] MEDS: dilTIAZem CD 120 MG CAP PO SCH (08:12)
[2024-03-04] MEDS: Metolazone 2.5 MG TAB PO SCH (08:12)
[2024-03-04] MEDS: Oxybutynin 5 MG TAB PO SCH (08:13)
[2024-03-04] MEDS: Furosemide 20 MG TAB PO SCH (08:13)
[2024-03-04] MEDS: Loratadine 10 MG TAB PO SCH (08:14)
[2024-03-04 08:20] VITALS: BP 119/80; TEMP 97.6
[2024-03-04] MEDS ORDERED: Rivaroxaban 10 MG TAB PO SCH (17:00)
== END 2024-03-04 16:00 | disposition home or self-care (01) | DRG 274 ==
LOC: SURG A 09:17 → 2SW 16:24
PROVIDERS: ADMIT Internal Medicine Cardiovascular Disease; ATTEND Internal Medicine Cardiovascular Disease
PROC: 02L73DK Occlusion of Left Atrial Appendage with Intraluminal Device, Percutaneous Approach (ICD-10-PCS; principal; 2024-03-03)
PROC: B24BZZ4 Ultrasonography of Heart with Aorta, Transesophageal (ICD-10-PCS; 2024-03-03)
DX: I48.21 Permanent atrial fibrillation (principal); Z00.6 Encounter for examination for normal comparison and control in clinical research program; I10 Essential (primary) hypertension; E78.5 Hyperlipidemia, unspecified; Z88.2 Allergy status to sulfonamides; Z91.040 Latex allergy status; Z91.048 Other nonmedicinal substance allergy status; Z96.641 Presence of right artificial hip joint; Z90.13 Acquired absence of bilateral breasts and nipples; Z85.3 Personal history of malignant neoplasm of breast; Z90.49 Acquired absence of other specified parts of digestive tract; Z98.51 Tubal ligation status; Z79.01 Long term (current) use of anticoagulants; Z79.899 Other long term (current) drug therapy
CPT/HCPCS: 33340; 36415; 80048; 85025; 85347; 85610; 86850; 86900; 86901; 93306; 93355; C1759; C1760; C1893; C1894; J1100; J1644; J2405; J2704; J2720; J3010; Q9967

== ENCOUNTER 2024-07-06 10:01 | Outpatient (CLI) | payer MEDICARE | END 2024-07-06 10:02 | disposition home or self-care (01) | LOC: RAD 10:01 | PROVIDERS: ATTEND Internal Medicine Gastroenterology | DX: R13.10 Dysphagia, unspecified (principal); K21.9 Gastro-esophageal reflux disease without esophagitis | CPT/HCPCS: 74230 ==

== ENCOUNTER 2024-08-28 15:42 | Inpatient (IN) | payer MEDICARE ==
[2024-08-28 16:21] LABS: #Basophils 0.04 10x3/uL (0.0-0.2); #Eosinophils Less than 0.03 10x3/uL (0.0-0.7); %Basophils 1.1 % (0.0-1.0); %Eosinophils 0.5 % (0.0-10.0); %Lymphocytes 17.6 % (21.0-51.0); %Monocytes 13.7 % (0.0-10.0); %Neutrophils 66.8 % (42.0-75.0); Hematocrit 40.9 % (36.0-47.0); Hemoglobin 13.6 g/dL (12.0-16.0); Mean Corpuscular HGB CONC 33.3 g/dL (32.0-36.0); Mean Corpuscular Hemoglobin 32.2 pg (27.0-31.0); Mean Corpuscular Volume 96.7 fL (78.0-98.0); Mean Platelet Volume 10.5 fL (7.4-10.4); Platelet Count 129 10x3/uL (130-400); RBC Distribution Width 14.6 % (11.5-14.5); Red Blood Cell (RBC) Count 4.23 mill/uL (4.20-5.40)
[2024-08-28 16:36] LABS: ALT (SGPT) 19 U/L (8-55); AST (SGOT) 27 U/L (5-34); Albumin 3.5 g/dL (3.4-4.8); Alkaline Phosphatase 224 U/L (40-110); Anion Gap 18 mmol/L (10-20); BUN (Urea Nitrogen) 12 mg/dL (9.8-20.1); Bilirubin, Total 1.3 mg/dL (0.2-1.2); Calc. Creatinine Clearance 0 mL/min (70-130); Calcium 8.9 mg/dL (7.8-10.44); Carbon Dioxide 20 mmol/L (23-31); Chloride 102 mmol/L (98-107); Estimated GFR 89; Globulin 3.6 g/dL (2.4-3.5); Glucose 86 mg/dL (83-110); Magnesium 1.8 mg/dL (1.6-2.6); Potassium 3.7 mmol/L (3.5-5.1); Protein, Total 7.1 g/dL (5.8-8.1); Sodium 136 mmol/L (136-145)
[2024-08-28 16:41] LABS: Troponin I 0.143 ng/mL (< 0.028)
[2024-08-28 18:22] LABS: Bacteria/HPF Rare-Few HPF (None Seen); Bilirubin Negative (Negative); Blood, Urine Trace (Negative); CAUTI Indications for Culture Pelvic or flank pain; Calcium Oxalate Crystals Rare HPF (None Seen); Clarity Turbid (Clear); Glucose, Urine (Dipstick) Normal (Negative); Ketone, Urine Trace mg/dL (Negative); Leukocyte 75 Leu/uL (Negative); Nitrite Negative (Negative); Protein, Urine (Dipstick) 100 mg/dL (Neg-Trace); RBC/HPF 0-3 HPF (0-3); Specific Gravity, Urine 1.023 (1.002-1.036); Urobilinogen Normal mg/dL (Less than 2)
[2024-08-28 18:24] LABS: Urine Culture Reflex No No
[2024-08-28] MEDS ORDERED: Aspirin Chewable 81 MG TAB ONE (19:13)
[2024-08-28 19:25] LABS: Digoxin Less than 0.19 ng/mL (0.8-2.0)
[2024-08-28] MEDS ORDERED: Ondansetron ODT 4 MG TAB PO PRN (19:35)
[2024-08-28] MEDS ORDERED: Acetaminophen 325 MG TAB PO PRN (19:35)
[2024-08-28 20:06] LABS: Troponin I 0.144 ng/mL (< 0.028)
[2024-08-28 22:14] VITALS: BMI 19.9
[2024-08-28] MEDS: Magnesium Oxide 400 MG TAB PO SCH (22:24)
[2024-08-28] MEDS: Potassium Chloride 20 MEQ TAB PO SCH (22:24)
[2024-08-28] MEDS: Gabapentin 100 MG CAP PO SCH (23:59)
[2024-08-29 00:43] LABS: Troponin I 0.186 ng/mL (< 0.028)
[2024-08-29 05:53] LABS: #Basophils 0.03 10x3/uL (0.0-0.2); %Lymphocytes 19.7 % (21.0-51.0); %Monocytes 16.7 % (0.0-10.0); %Neutrophils 61.6 % (42.0-75.0); Hematocrit 36.4 % (36.0-47.0); Hemoglobin 12.2 g/dL (12.0-16.0); Mean Corpuscular HGB CONC 33.5 g/dL (32.0-36.0); Mean Corpuscular Hemoglobin 31.8 pg (27.0-31.0); Mean Corpuscular Volume 94.8 fL (78.0-98.0); Platelet Count 102 10x3/uL (130-400); RBC Distribution Width 14.7 % (11.5-14.5); Red Blood Cell (RBC) Count 3.84 mill/uL (4.20-5.40)
[2024-08-29 06:35] LABS: ALT (SGPT) 15 U/L (8-55); AST (SGOT) 21 U/L (5-34); Alkaline Phosphatase 189 U/L (40-110); Anion Gap 14 mmol/L (10-20); BUN (Urea Nitrogen) 14 mg/dL (9.8-20.1); Bilirubin, Total 0.9 mg/dL (0.2-1.2); Calc. Creatinine Clearance 52 mL/min (70-130); Calcium 8.7 mg/dL (7.8-10.44); Carbon Dioxide 20 mmol/L (23-31); Chloride 108 mmol/L (98-107); Estimated GFR 83; Glucose 96 mg/dL (83-110); Magnesium 1.9 mg/dL (1.6-2.6); Potassium 3.7 mmol/L (3.5-5.1); Sodium 138 mmol/L (136-145)
[2024-08-29 06:44] LABS: Phosphorus 3.2 mg/dL (2.3-4.7)
[2024-08-29 07:20] LABS: Carbamazepine-Tegretol 3.8 ug/mL (4.0-12.0)
[2024-08-29] MEDS ORDERED: Enoxaparin 40 MG (0.4 mL) SYRINGE SC SCH (09:00)
[2024-08-29] MEDS: Digoxin 0.25 MG TAB PO SCH (10:28)
[2024-08-29] MEDS: dilTIAZem CD 120 MG CAP PO SCH (10:29)
[2024-08-29] MEDS: Oxybutynin 5 MG TAB PO SCH (10:29)
[2024-08-29] MEDS: Aspirin 81 mg Enteric Coated Tablet PO SCH (10:29)
[2024-08-29] MEDS: Clopidogrel Bisulfate 75 MG TAB PO SCH (10:29)
[2024-08-29] MEDS: Atorvastatin Calcium 10 MG TAB PO SCH (10:29)
[2024-08-29] MEDS: Pentoxifylline 400 MG ER.TAB PO SCH (11:06)
[2024-08-29] MEDS: Ferrous Sulfate 325 MG TAB PO SCH (11:06)
[2024-08-29] MEDS: Metamucil PACK PO SCH (11:06)
[2024-08-29] MEDS: Cholecalciferol 1,000 UNITS (25 MCG) TAB PO SCH (11:06)
[2024-08-29] MEDS: Potassium Chloride 20 MEQ TAB PO SCH (11:06)
[2024-08-29] MEDS: Furosemide 20 MG TAB PO SCH (11:06)
[2024-08-29] MEDS: Metolazone 2.5 MG TAB PO SCH (11:07)
[2024-08-29] MEDS ORDERED: Iopamidol 370 76% 100 ML VIAL ONE (12:41)
[2024-08-29] MEDS: Magnesium 2 GM/50 ML(in water) 2 GM in Premix 1 BAG IVPB SCH (14:25)
[2024-08-29] MEDS: Calcium Carbonate 500 MG ChewTAB PO PRN (18:39)
[2024-08-29] MEDS: Simethicone Chewable 80 MG TAB PO PRN (18:39)
[2024-08-29] MEDS: Gabapentin 100 MG CAP PO SCH (20:29)
[2024-08-29] MEDS: carBAMazepine 100 mg Chewable Tablet PO SCH (20:29)
[2024-08-29] MEDS: Metoprolol Succinate XL 25 MG ER.TAB PO SCH (20:30)
[2024-08-30 04:11] LABS: #Basophils 0.03 10x3/uL (0.0-0.2); %Basophils 0.8 % (0.0-1.0); %Eosinophils 0.8 % (0.0-10.0); %Lymphocytes 19.7 % (21.0-51.0); %Monocytes 15.6 % (0.0-10.0); %Neutrophils 62.8 % (42.0-75.0); Hematocrit 36.5 % (36.0-47.0); Hemoglobin 12.5 g/dL (12.0-16.0); Mean Corpuscular HGB CONC 34.2 g/dL (32.0-36.0); Mean Corpuscular Hemoglobin 32.1 pg (27.0-31.0); Mean Corpuscular Volume 93.8 fL (78.0-98.0); Mean Platelet Volume 10.7 fL (7.4-10.4); Platelet Count 121 10x3/uL (130-400); RBC Distribution Width 14.6 % (11.5-14.5); Red Blood Cell (RBC) Count 3.89 mill/uL (4.20-5.40)
[2024-08-30 04:24] LABS: Troponin I 0.138 ng/mL (< 0.028)
[2024-08-30 04:25] LABS: ALT (SGPT) 14 U/L (8-55); AST (SGOT) 22 U/L (5-34); Albumin 3.1 g/dL (3.4-4.8); Alkaline Phosphatase 211 U/L (40-110); Anion Gap 14 mmol/L (10-20); BUN (Urea Nitrogen) 13 mg/dL (9.8-20.1); Bilirubin, Total 0.9 mg/dL (0.2-1.2); Calc. Creatinine Clearance 56 mL/min (70-130); Calcium 8.8 mg/dL (7.8-10.44); Carbon Dioxide 23 mmol/L (23-31); Chloride 101 mmol/L (98-107); Estimated GFR 88; Globulin 3.2 g/dL (2.4-3.5); Glucose 91 mg/dL (83-110); Potassium 3.3 mmol/L (3.5-5.1); Protein, Total 6.3 g/dL (5.8-8.1); Sodium 135 mmol/L (136-145)
[2024-08-30] MEDS: Potassium Bicarbonate/Cit Ac 20 MEQ TAB PO SCH (06:52)
[2024-08-30] MEDS: Potassium Chloride 20 MEQ TAB PO ONE (06:53)
[2024-08-30] MEDS: Pantoprazole 40 MG DR.TAB PO SCH (10:02)
[2024-08-30] MEDS ORDERED: Iopamidol 370 76% 100 ML VIAL ONE (13:29)
[2024-08-30] MEDS: Cholestyramine/Aspartame 4 gm Packet PO SCH (20:37)
[2024-08-30] MEDS: Oxybutynin 5 MG TAB PO SCH (20:39)
[2024-08-31 04:20] LABS: #Basophils 0.03 10x3/uL (0.0-0.2); %Basophils 0.7 % (0.0-1.0); %Lymphocytes 18.5 % (21.0-51.0); %Neutrophils 64.6 % (42.0-75.0); Hematocrit 37.6 % (36.0-47.0); Hemoglobin 13.1 g/dL (12.0-16.0); Mean Corpuscular HGB CONC 34.8 g/dL (32.0-36.0); Mean Corpuscular Hemoglobin 32.8 pg (27.0-31.0); Mean Corpuscular Volume 94.2 fL (78.0-98.0); Mean Platelet Volume 10.3 fL (7.4-10.4); Platelet Count 134 10x3/uL (130-400); RBC Distribution Width 14.4 % (11.5-14.5); Red Blood Cell (RBC) Count 3.99 mill/uL (4.20-5.40)
[2024-08-31 07:43] LABS: ALT (SGPT) 16 U/L (8-55); AST (SGOT) 20 U/L (5-34); Alkaline Phosphatase 197 U/L (40-110); Anion Gap 16 mmol/L (10-20); BUN (Urea Nitrogen) 12 mg/dL (9.8-20.1); Bilirubin, Total 0.9 mg/dL (0.2-1.2); Calc. Creatinine Clearance 50 mL/min (70-130); Carbon Dioxide 24 mmol/L (23-31); Chloride 98 mmol/L (98-107); Estimated GFR 81; Globulin 3.2 g/dL (2.4-3.5); Glucose 98 mg/dL (83-110); Potassium 2.7 mmol/L (3.5-5.1); Protein, Total 6.2 g/dL (5.8-8.1); Sodium 135 mmol/L (136-145)
[2024-08-31] MEDS: Enoxaparin 40 MG (0.4 mL) SYRINGE SC SCH (08:46)
[2024-08-31] MEDS: Potassium Chloride 20 MEQ TAB PO SCH ×3 (08:46→18:37)
[2024-08-31] MEDS ORDERED: Potassium Chloride 40 MEQ in Sodium Chloride 0.9% 250 ML 250 ML IVPB SCH (10:15)
[2024-08-31] MEDS ORDERED: Potassium Chloride 10 MEQ in Premix 1 BAG IVPB SCH (10:30)
[2024-08-31] MEDS: Potassium Chloride 20 MEQ in Premix 1 BAG IVPB SCH (10:36)
[2024-08-31 15:50] LABS: Potassium 3.3 mmol/L (3.5-5.1)
[2024-09-01 04:19] LABS: #Basophils 0.03 10x3/uL (0.0-0.2); #Eosinophils Less than 0.03 10x3/uL (0.0-0.7); %Basophils 0.8 % (0.0-1.0); %Eosinophils 0.5 % (0.0-10.0); %Lymphocytes 18.9 % (21.0-51.0); %Monocytes 13.9 % (0.0-10.0); %Neutrophils 65.6 % (42.0-75.0); Hematocrit 38.2 % (36.0-47.0); Hemoglobin 13.1 g/dL (12.0-16.0); Mean Corpuscular HGB CONC 34.3 g/dL (32.0-36.0); Mean Corpuscular Hemoglobin 32.3 pg (27.0-31.0); Mean Corpuscular Volume 94.3 fL (78.0-98.0); Mean Platelet Volume 10.1 fL (7.4-10.4); Platelet Count 150 10x3/uL (130-400); RBC Distribution Width 14.4 % (11.5-14.5); Red Blood Cell (RBC) Count 4.05 mill/uL (4.20-5.40)
[2024-09-01 04:43] LABS: ALT (SGPT) 13 U/L (8-55); AST (SGOT) 17 U/L (5-34); Alkaline Phosphatase 184 U/L (40-110); Anion Gap 13 mmol/L (10-20); BUN (Urea Nitrogen) 15 mg/dL (9.8-20.1); Bilirubin, Total 0.9 mg/dL (0.2-1.2); Calc. Creatinine Clearance 56 mL/min (70-130); Calcium 9.2 mg/dL (7.8-10.44); Carbon Dioxide 25 mmol/L (23-31); Chloride 99 mmol/L (98-107); Estimated GFR 88; Globulin 3.2 g/dL (2.4-3.5); Glucose 94 mg/dL (83-110); Potassium 3.9 mmol/L (3.5-5.1); Protein, Total 6.2 g/dL (5.8-8.1); Sodium 133 mmol/L (136-145)
[2024-09-01] MEDS: GoLYTELY 4,000 ml Bottle PO SCH (18:48)
[2024-09-02 05:58] LABS: #Basophils 0.04 10x3/uL (0.0-0.2); %Eosinophils 0.7 % (0.0-10.0); %Lymphocytes 18.2 % (21.0-51.0); %Monocytes 13.8 % (0.0-10.0); %Neutrophils 65.8 % (42.0-75.0); Hematocrit 40.9 % (36.0-47.0); Hemoglobin 13.6 g/dL (12.0-16.0); Mean Corpuscular HGB CONC 33.3 g/dL (32.0-36.0); Mean Corpuscular Hemoglobin 31.5 pg (27.0-31.0); Mean Corpuscular Volume 94.7 fL (78.0-98.0); Mean Platelet Volume 10.1 fL (7.4-10.4); Platelet Count 160 10x3/uL (130-400); RBC Distribution Width 14.4 % (11.5-14.5); Red Blood Cell (RBC) Count 4.32 mill/uL (4.20-5.40)
[2024-09-02 06:31] LABS: ALT (SGPT) 21 U/L (8-55); AST (SGOT) 31 U/L (5-34); Albumin 3.4 g/dL (3.4-4.8); Alkaline Phosphatase 206 U/L (40-110); Anion Gap 14 mmol/L (10-20); BUN (Urea Nitrogen) 19 mg/dL (9.8-20.1); Bilirubin, Total 1.2 mg/dL (0.2-1.2); Calc. Creatinine Clearance 46 mL/min (70-130); Calcium 9.4 mg/dL (7.8-10.44); Carbon Dioxide 29 mmol/L (23-31); Chloride 97 mmol/L (98-107); Estimated GFR 77; Globulin 3.5 g/dL (2.4-3.5); Glucose 83 mg/dL (83-110); Potassium 3.2 mmol/L (3.5-5.1); Protein, Total 6.9 g/dL (5.8-8.1); Sodium 137 mmol/L (136-145)
[2024-09-02] MEDS ORDERED: PROPOFOL 60 ML ONE (12:24)
[2024-09-02] MEDS ORDERED: Lidocaine 1% PF 5 ML VIAL ONE (12:32)
[2024-09-02] MEDS ORDERED: PHENYLEPHRINE-NS 100 MCG/ML 10 ML SYRINGE ONE (12:49)
[2024-09-02 13:09] LABS: EliA Celiac New Method **** NEW METHOD ****; t-Transglutaminase (tTG) IgG 1.2 EliAU/mL (<7 Negative)
[2024-09-02 14:04] VITALS: BMI 19.0
[2024-09-02 16:13] LABS: Fatty Acid Droplets Normal (.); Neutral Fats And/Or Soaps Normal (.)
[2024-09-02] MEDS: Potassium Chloride 20 MEQ TAB PO SCH (16:29)
[2024-09-02 23:08] LABS: Adenovirus F 40-41 Not Detected (Not Detected); Astrovirus Not Detected (Not Detected); C. difficile toxin A+B Not Detected (Not Detected); Campylobacter by PCR Not Detected (Not Detected); Cryptosporidium Not Detected (Not Detected); Cyclospora cayetanensis Not Detected (Not Detected); Entamoeba histolytica Not Detected (Not Detected); Enteroaggregative E. coli Not Detected (Not Detected); Enteropathogenic E. coli Not Detected (Not Detected); Enterotoxigenic E. coli Not Detected (Not Detected); Giardia lamblia Not Detected (Not Detected); Norovirus GI-GII DETECTED (Not Detected); Plesiomonas shigelloides Not Detected (Not Detected); Rotavirus A Not Detected (Not Detected); Salmonella Not Detected (Not Detected); Sapovirus Not Detected (Not Detected); Shiga-toxin-producing E coli Not Detected (Not Detected); Shigella/Enteroinvasive E coli Not Detected (Not Detected); Vibrio Not Detected (Not Detected); Vibrio cholerae Not Detected (Not Detected); Yersinia enterocolitica Not Detected (Not Detected)
[2024-09-03 01:00] LABS: #Basophils 0.04 10x3/uL (0.0-0.2); #Eosinophils Less than 0.03 10x3/uL (0.0-0.7); %Basophils 0.4 % (0.0-1.0); %Lymphocytes 5.1 % (21.0-51.0); %Monocytes 8.3 % (0.0-10.0); %Neutrophils 85.9 % (42.0-75.0); Hemoglobin 13.4 g/dL (12.0-16.0); Mean Corpuscular HGB CONC 34.4 g/dL (32.0-36.0); Mean Corpuscular Hemoglobin 32.1 pg (27.0-31.0); Mean Corpuscular Volume 93.5 fL (78.0-98.0); Mean Platelet Volume 9.9 fL (7.4-10.4); Platelet Count 149 10x3/uL (130-400); RBC Distribution Width 14.6 % (11.5-14.5); Red Blood Cell (RBC) Count 4.17 mill/uL (4.20-5.40)
[2024-09-03 04:24] LABS: #Basophils Less than 0.03 10x3/uL (0.0-0.2); #Eosinophils Less than 0.03 10x3/uL (0.0-0.7); %Basophils 0.2 % (0.0-1.0); %Eosinophils 0.1 % (0.0-10.0); %Lymphocytes 7.4 % (21.0-51.0); %Monocytes 8.6 % (0.0-10.0); %Neutrophils 83.5 % (42.0-75.0); Hematocrit 36.2 % (36.0-47.0); Hemoglobin 12.6 g/dL (12.0-16.0); Mean Corpuscular HGB CONC 34.8 g/dL (32.0-36.0); Mean Corpuscular Hemoglobin 32.2 pg (27.0-31.0); Mean Corpuscular Volume 92.6 fL (78.0-98.0); Mean Platelet Volume 10.2 fL (7.4-10.4); Platelet Count 131 10x3/uL (130-400); RBC Distribution Width 14.6 % (11.5-14.5); Red Blood Cell (RBC) Count 3.91 mill/uL (4.20-5.40)
[2024-09-03 04:37] LABS: ALT (SGPT) 23 U/L (8-55); AST (SGOT) 31 U/L (5-34); Albumin 2.8 g/dL (3.4-4.8); Alkaline Phosphatase 178 U/L (40-110); Anion Gap 13 mmol/L (10-20); BUN (Urea Nitrogen) 18 mg/dL (9.8-20.1); Bilirubin, Total 1.2 mg/dL (0.2-1.2); Calc. Creatinine Clearance 56 mL/min (70-130); Calcium 8.2 mg/dL (7.8-10.44); Carbon Dioxide 25 mmol/L (23-31); Chloride 100 mmol/L (98-107); Estimated GFR 89; Globulin 2.9 g/dL (2.4-3.5); Glucose 89 mg/dL (83-110); Potassium 3.4 mmol/L (3.5-5.1); Protein, Total 5.7 g/dL (5.8-8.1); Sodium 135 mmol/L (136-145)
[2024-09-03] MEDS: Potassium Chloride 20 MEQ TAB PO SCH (10:00)
[2024-09-03] MEDS: Loperamide HCl 2 MG CAP PO SCH (20:54)
[2024-09-04 04:35] LABS: ALT (SGPT) 20 U/L (8-55); AST (SGOT) 22 U/L (5-34); Albumin 2.8 g/dL (3.4-4.8); Alkaline Phosphatase 162 U/L (40-110); Anion Gap 11 mmol/L (10-20); BUN (Urea Nitrogen) 20 mg/dL (9.8-20.1); Bilirubin, Total 0.9 mg/dL (0.2-1.2); Calc. Creatinine Clearance 54 mL/min (70-130); Calcium 8.8 mg/dL (7.8-10.44); Carbon Dioxide 26 mmol/L (23-31); Chloride 106 mmol/L (98-107); Estimated GFR 88; Globulin 3.1 g/dL (2.4-3.5); Glucose 95 mg/dL (83-110); Potassium 3.9 mmol/L (3.5-5.1); Protein, Total 5.9 g/dL (5.8-8.1); Sodium 139 mmol/L (136-145)
[2024-09-04 05:33] LABS: #Basophils 0.04 10x3/uL (0.0-0.2); %Lymphocytes 15.4 % (21.0-51.0); %Monocytes 13.7 % (0.0-10.0); %Neutrophils 68.6 % (42.0-75.0); Hematocrit 33.7 % (36.0-47.0); Hemoglobin 11.5 g/dL (12.0-16.0); Mean Corpuscular HGB CONC 34.1 g/dL (32.0-36.0); Mean Corpuscular Hemoglobin 32.8 pg (27.0-31.0); Mean Platelet Volume 9.5 fL (7.4-10.4); Platelet Count 121 10x3/uL (130-400); RBC Distribution Width 14.7 % (11.5-14.5); Red Blood Cell (RBC) Count 3.51 mill/uL (4.20-5.40)
[2024-09-04 13:59] VITALS: TEMP 97.8
[2024-09-04 15:58] VITALS: BP 107/66
== END 2024-09-04 17:02 | disposition home or self-care (01) | DRG 391 ==
LOC: ERS 15:42 → 2NO 19:16 → OBSVTOIN 08-29 13:29
PROVIDERS: ADMIT Emergency Medicine; ATTEND Emergency Medicine
PROC: 30233S1 Transfusion of Nonautologous Globulin into Peripheral Vein, Percutaneous Approach (ICD-10-PCS; 2024-08-31)
PROC: 0DBH8ZX Excision of Cecum, Via Natural or Artificial Opening Endoscopic, Diagnostic (ICD-10-PCS; principal; 2024-09-02)
PROC: 0DBH8ZZ Excision of Cecum, Via Natural or Artificial Opening Endoscopic (ICD-10-PCS; 2024-09-02)
PROC: 0DB98ZX Excision of Duodenum, Via Natural or Artificial Opening Endoscopic, Diagnostic (ICD-10-PCS; 2024-09-02)
PROC: 0DB78ZX Excision of Stomach, Pylorus, Via Natural or Artificial Opening Endoscopic, Diagnostic (ICD-10-PCS; 2024-09-02)
PROC: 0DBE8ZX Excision of Large Intestine, Via Natural or Artificial Opening Endoscopic, Diagnostic (ICD-10-PCS; 2024-09-02)
PROC: 0W3P8ZZ Control Bleeding in Gastrointestinal Tract, Via Natural or Artificial Opening Endoscopic (ICD-10-PCS; 2024-09-02)
PROC: 3E033XZ Introduction of Vasopressor into Peripheral Vein, Percutaneous Approach (ICD-10-PCS; 2024-09-02)
DX: R19.7 Diarrhea, unspecified (principal); E43 Unspecified severe protein-calorie malnutrition; K57.31 Diverticulosis of large intestine without perforation or abscess with bleeding; Z68.1 Body mass index [BMI] 19.9 or less, adult; J90 Pleural effusion, not elsewhere classified; R64 Cachexia; I48.91 Unspecified atrial fibrillation; I10 Essential (primary) hypertension; K21.9 Gastro-esophageal reflux disease without esophagitis; I70.0 Atherosclerosis of aorta; E78.00 Pure hypercholesterolemia, unspecified; D69.6 Thrombocytopenia, unspecified; D72.819 Decreased white blood cell count, unspecified; M34.9 Systemic sclerosis, unspecified; G50.0 Trigeminal neuralgia; E87.6 Hypokalemia; Z85.3 Personal history of malignant neoplasm of breast; Z90.13 Acquired absence of bilateral breasts and nipples; Z88.2 Allergy status to sulfonamides; Z91.040 Latex allergy status; Z79.02 Long term (current) use of antithrombotics/antiplatelets; Z79.899 Other long term (current) drug therapy; Z79.82 Long term (current) use of aspirin; Z90.49 Acquired absence of other specified parts of digestive tract
CPT/HCPCS: 36415; 71045; 71275; 74177; 80053; 80156; 80162; 81001; 82705; 83516; 83735; 83880; 84100; 84484; 85025; 85379; 87328; 87329; 87507; 88305; 93005; C1889; G0378; J1650; J2704; J3475; J3480; Q9967

== ENCOUNTER 2025-06-12 11:28 | Outpatient (CLI) | payer MEDICARE | END 2025-06-12 11:29 | disposition home or self-care (01) | LOC: BICMAMMO 11:28 | PROVIDERS: ATTEND Internal Medicine Rheumatology | DX: M81.0 Age-related osteoporosis without current pathological fracture (principal) | CPT/HCPCS: 77080 ==